=== PATIENT | female | born 1975 | race Caucasian/White ===

== ENCOUNTER 2018-03-24 14:18 | Emergency (ER) | payer SELFPAY ==
[~2018-03-24] VITALS: Ht 167.6 cm; Wt 74.8 kg
[2018-03-24 15:07] VITALS: BP 137/83
--- NOTE | 2018-03-24 15:34 | EKG ---
[facility] [address] [place] [address] Test Date: 2018-03-24 Test Time: 14:24:41 Pat Name: DAWOOD CASTLE Department: Room: Gender: F Retina Subspecialist: : 1975 Requested By: BRODERICK WHITFIELD Order Number: [id number] Reading MD: Fernando Jackson Measurements Intervals Jasper Rate: 74 P: 68 WA: 140 QRS: 73 QRSD: 84 T: 19 QT: 378 QTc: 420 Interpretive Statements SINUS RHYTHM NONSPECIFIC ST-T WAVE CHANGES. POSSIBLY ABNORMAL ECG RI6.01 No previous ECG available for comparison Electronically Signed On 03-28-2018 12:55:38 [employer] TECHNICIAN by Fernando Jackson
[2018-03-24] MEDS ORDERED: LIDOCAINE 2% VISCOUS 15 ML SOLUTION. ONE (15:37)
[2018-03-24] MEDS: MAALOX:LIDO:APAP 6:2:1 ORAL SUSPENSION 180 ML BOTTLE. PO PRN (16:16)
[2018-03-24] MEDS: PANTOPRAZOLE 40 MG TABLET.DR. PO ONE (16:16)
[2018-03-24 16:34] LABS: BASO % 1 % (0-3); EOS # 0.4 x10^3/uL (0.0-0.7); EOS % 5 % (0-3); HEMATOCRIT 43.7 % (36.0-47.0); LYMPH # 2.4 x10^3/uL (1.0-4.8); LYMPH % 30 % (24-48); MEAN CORPUSCULAR HEMOGLOBIN 30 pg (25-35); MEAN CORPUSCULAR HGB CONC 34 g/dL (31-37); MEAN CORPUSCULAR VOLUME 88 fL (79-100); MONO # 0.6 x10^3/uL (0.0-1.1); MONO % 8 % (0-9); NEUT # 4.5 x10^3uL (1.8-7.7); NEUT % 57 % (31-73); PLATELET COUNT 237 x10^3/uL (140-400); RED BLOOD COUNT 4.94 x10^6/uL (3.50-5.40); RED CELL DISTRIBUTION WIDTH 12.3 % (11.5-14.5)
[2018-03-24 16:41] LABS: CREATININE 0.8 mg/dL (0.6-1.0); GFR 78.7; POTASSIUM 3.8 mmol/L (3.5-5.1)
[2018-03-24 17:04] LABS: U PREG PATIENT NEGATIVE (NEG)
--- NOTE | 2018-03-24 17:19 | PHYS DOC ---
Past Medical History Past Medical History: Asthma Past Surgical History: No Surgical History Alcohol Use: Occasionally Drug Use: None Adult General Chief Complaint Chief Complaint: CHEST PAIN-NON CARDIAC NATURE HPI HPI Patient is a 43 year old female who presents to the ER for evaluation chest pain. Patient reports long-standing history of dysphagia with some intermittent self resolving fluid boluses. His GERD symptoms and sensation of dysphasia/ esophageal food impactions. Over the past 2-3 days. Patient states while driving her vehicle and eating she had acute epigastric/chest pain associated with impacted food sensation. States that lasted for approximately 40 minutes and self resolved. Denies any current symptoms. Has history of asthma currently on a prednisone steroid burst. Reports that her asthma symptoms are improving. No GI bleed symptoms. Is not currently established with a PCP. Review of Systems Review of Systems Constitutional: Denies fever or chills [] Eyes: Denies change in visual acuity, redness, or eye pain [] HENT: Denies nasal congestion or sore throat [] Respiratory: Denies cough or shortness of breath [] Cardiovascular: Chest pain-resolved, no orthopnea, no LE edema GI: Denies abdominal pain, nausea, vomiting, bloody stools or diarrhea [] : Denies dysuria or hematuria [] Musculoskeletal: Denies back pain or joint pain [] Integument: Denies rash or skin lesions [] Neurologic: Denies headache, focal weakness or sensory changes [] Endocrine: Denies polyuria or polydipsia [] All other systems were reviewed and found to be within normal limits, except as documented in this note. Current Medications Current Medications Current Medications Medications (Trade) Dose Ordered Sig/Hesham Start Time Stop Time Status Last Admin Dose Admin Lidocaine HCl (Viscous Lidocaine) 15 ml STK-MED ONCE 03/24/18 15:37 03/24/18 15:38 DC Multi-Ingredient Mouthwash/Gargle (Velvet Glove Oral Susp) 10 ml PRN QID PRN 03/24/18 15:30 03/24/18 17:31 DC 03/24/18 16:16 10 ML Pantoprazole Sodium (Protonix) 40 mg 1X ONCE 03/24/18 15:30 03/24/18 15:31 DC 03/24/18 16:16 40 MG Allergies Allergies Allergies Coded Allergies Type Severity Reaction Last Updated Verified Penicillins Allergy Intermediate Unknown 03/24/18 Yes Sulfa (Sulfonamide Antibiotics) Allergy Intermediate Unknown 03/24/18 Yes clarithromycin Allergy Intermediate Unknown 03/24/18 Yes Physical Exam Physical Exam Constitutional: Well developed, well nourished, no acute distress, non-toxic appearance. [] HENT: Normocephalic, atraumatic, bilateral external ears normal, oropharynx moist, no oral exudates, nose normal. [] Eyes: PERRLA, EOMI, conjunctiva normal, no discharge. [] Neck: Normal range of motion, no tenderness, supple, no stridor. [] Cardiovascular:Heart rate regular rhythm, no murmur [] Lungs & Thorax: Bilateral breath sounds clear to auscultation [] Abdomen: Bowel sounds normal, soft, no tenderness, no masses, no pulsatile masses. [] Skin: Warm, dry, no erythema, no rash. [] Back: No tenderness, no CVA tenderness. [] Extremities: No tenderness, no cyanosis, no clubbing, ROM intact, no edema. [] Neurologic: Alert and oriented X 3, normal motor function, normal sensory function, no focal deficits noted. [] Psychologic: Affect normal, judgement normal, mood normal. [] Current Patient Data Vital Signs Vital Signs Date Time Temp Pulse Resp B/P (MAP) Pulse Ox O2 Delivery O2 Flow Rate FiO2 03/24/18 15:07 98.4 73 20 137/83 (101) 97 Room Air 98.4 Lab Values Laboratory Tests Test 03/24/18 16:15 03/24/18 16:25 Urine Test Negative (NEG) White Blood Count 8.0 x10^3/uL (4.0-11.0) Red Blood Count 4.94 x10^6/uL (3.50-5.40) Hemoglobin 15.0 g/dL (12.0-15.5) Hematocrit 43.7 % (36.0-47.0) Mean Corpuscular Volume 88 fL (79-100) Mean Corpuscular Hemoglobin 30 pg (25-35) Mean Corpuscular Hemoglobin Concent 34 g/dL (31-37) Red Cell Distribution Width 12.3 % (11.5-14.5) Platelet Count 237 x10^3/uL (140-400) Neutrophils (%) (Auto) 57 % (31-73) Lymphocytes (%) (Auto) 30 % (24-48) Monocytes (%) (Auto) 8 % (0-9) Eosinophils (%) (Auto) 5 % (0-3) H Basophils (%) (Auto) 1 % (0-3) Neutrophils # (Auto) 4.5 x10^3uL (1.8-7.7) Lymphocytes # (Auto) 2.4 x10^3/uL (1.0-4.8) Monocytes # (Auto) 0.6 x10^3/uL (0.0-1.1) Eosinophils # (Auto) 0.4 x10^3/uL (0.0-0.7) Basophils # (Auto) 0.0 x10^3/uL (0.0-0.2) Sodium Level 140 mmol/L (136-145) Potassium Level 3.8 mmol/L (3.5-5.1) Chloride Level 102 mmol/L (98-107) Carbon Dioxide Level 31 mmol/L (21-32) Anion Gap 7 (6-14) Blood Urea Nitrogen 15 mg/dL (7-20) Creatinine 0.8 mg/dL (0.6-1.0) Estimated GFR (Cockcroft-Gault) 78.7 Glucose Level 85 mg/dL (70-99) Calcium Level 9.0 mg/dL (8.5-10.1) Troponin I Quantitative < 0.017 ng/mL (0.000-0.055) Laboratory Tests 03/24/18 16:25 Laboratory Tests 03/24/18 16:25 EKG EKG NSR, HR 74, no significant ST segment changes[] Radiology/Procedures Radiology/Procedures CXR 2 view: no acute findings[] Course & Med Decision Making Course & Med Decision Making Pertinent Labs and Imaging studies reviewed. (See chart for details) []Patient reporting resolved to maybe 1-2 out of 10 on the pain scale at time of my evaluation. Leonardo that the GI cocktail helped significantly. No acute findings on labs, EKG, chest x-ray. Advised need for close GI follow-up. Advised to establish care with PCP. Will start on Protonix. ER return precautions given. Patient verbalized understanding. All questions answered. Dragon Disclaimer Dragon Disclaimer This electronic medical record was generated, in whole or in part, using a voice recognition dictation system. Departure Departure Impression: Primary Impression: Chest pain Additional Impression: Dysphagia Disposition: 01 HOME, SELF-CARE Condition: IMPROVED Referrals: UNKNOWN PCP NAME (PCP) NAHEED FERGUSON MD Patient Instructions: Chest Pain (Nonspecific), Dysphagia Additional Instructions: Thank you for coming to [facility]. Please repeat the attached handouts. Please follow-up with your primary care physician. Return to the ER if your symptoms worsen or you have any other concerns. Please establish care as soon as possible with a primary care physician. Please follow-up with the referred GI physician. Problem Qualifiers BRODERICK WHITFIELD DO Mar 24, 2018 17:19
--- NOTE | 2018-03-24 18:19 | RAD ---
EXAM: CHEST PA LATERAL DATE: 03/24/2018 5:05 PM INDICATION: Chest pain today COMPARISON: No Prior FINDINGS: The heart is not enlarged. Mediastinal and hilar contours are normal. No focal parenchymal airspace opacity. No pleural effusion or pneumothorax. IMPRESSION: 1. No radiographic evidence for acute cardiopulmonary process. Electronically signed by: Nicola Bolivar MD (03/24/2018 6:16 PM) [facility] [id number]
== END 2018-03-24 17:31 | disposition home or self-care (01) ==
LOC: ER 14:18
DX: R07.89 Other chest pain (principal); R13.10 Dysphagia, unspecified; J45.909 Unspecified asthma, uncomplicated; Z88.0 Allergy status to penicillin; Z88.1 Allergy status to other antibiotic agents; Z88.2 Allergy status to sulfonamides
CPT/HCPCS: 36415; 71046; 80048; 81025; 84484; 85025; 93005; 99285-25

== ENCOUNTER → 2018-04-01 | Outpatient (CLI) | payer OTHER ==
[2018-03-24 15:07] VITALS: BP 137/83
[2018-04-01 09:40] LABS: CALCIUM 8.4 mg/dL (8.5-10.1); CREATININE 0.9 mg/dL (0.6-1.0); GFR 68.7; POTASSIUM 3.5 mmol/L (3.5-5.1)
== END | disposition home or self-care (01) ==
LOC: LAB 09:09
PROVIDERS: ATTEND Family Medicine
DX: Z00.01 Encounter for general adult medical examination with abnormal findings (principal); E03.9 Hypothyroidism, unspecified
CPT/HCPCS: 36415; 80048; 80061; 84443

== ENCOUNTER → 2018-05-05 | Day surgery (SDC) | payer OTHER ==
[~2018-05-05] MED LIST: FLUT1DIS IH; IV RINGERS,LACTATED 1000ML 1,000 ML IV SCH; LEVO25TA4 PO; LIDOCAINE 1% PF 2 ML VIAL. ID PRN; MIDAZOLAM HCL/PF 2 MG/2 ML VIAL. IV PRN; MONT10TA9 PO; NORG1TAB6 PO; PRED20TA PO; PROPOFOL 40 ML IV ONE; VENTOLIN HFA18 GM INH; fentaNYL PF VIAL 100 MCG/2 ML VIAL IV PRN
[2018-05-05 09:41] LABS: U PREG PATIENT NEGATIVE (NEG)
[2018-05-05 10:40] VITALS: BP 106/67
--- NOTE | 2018-05-06 14:10 | PATHOLOGY ---
[facility] Accession Number: [id number] . 01 Material submitted: . PART A: SMALL BOWEL PART B: GASTRIC ANTRUM PART C: DISTAL ESOPHAGUS PART D: MID ESOPHAGUS . 01 Clinical history: . Dysphagia . 02 Diagnosis: A. Small bowel biopsy: - No significant pathologic abnormalities. . B. Gastric biopsy, antrum: - Consistent with reactive gastropathy. . C. Esophageal biopsy, distal esophagus: - Segments of hyperplastic squamous esophageal mucosa showing focal superficial ulceration and acute inflammation, and segments of gastric mucosa showing chronic inflammation, consistent with reflux esophagitis. . D. Esophageal biopsy, middle esophagus: - Segments of squamous esophageal mucosa showing no significant pathologic abnormalities. (JPM:allyson; 05/06/2018) QMS/05/06/2018 . 02 Comment: Sections of the small bowel biopsy, where best oriented, display mucosal villi showing no sprue-like changes or significant inflammatory changes. . Sections of the gastric antral biopsy show congestion, foveolar hyperplasia, and no significant inflammation. A properly controlled immunoperoxidase stain for Helicobacter is negative for Helicobacter organisms. The findings are consistent with a reactive gastropathy. . Sections of the distal esophageal biopsy reveal segments of hyperplastic squamous esophageal mucosa showing focal superficial ulceration and acute inflammation, and segments of gastric mucosa showing chronic inflammation. The squamous esophageal mucosa focally shows a few intraepithelial eosinophils. The findings are consistent with reflux esophagitis with focal ulceration. There is no evidence of Negrete's change, dysplasia, or malignancy. . Sections of the middle esophagus biopsy reveal segments of squamous esophageal mucosa showing no significant pathologic abnormalities. (JPM:allyson; 05/06/2018) . . Special stain performed: Immunoperoxidase stain for Helicobacter on B1. . 02 Electronically signed: . Anmol Gale MD, Pathologist NPI- [id number] . 01 Gross description: . A. The specimen is received in formalin, labeled ", August, small bowel" and consists of 4 fragments of soft ortiz tissue measuring between 0.1 x 0.1 cm and 0.5 x 0.2 x 0.1 cm. They are entirely submitted in A1. . B. The specimen is received in formalin, labeled "August, gastric antrum" and consists of 2 fragments soft ortiz tissue measuring 0.4 x 0.2 x 0.1 cm and 0.3 x 0.2 x 0.1 cm. They are entirely submitted in B1. . C. The specimen is received in formalin, labeled "August, distal esophagus" and consists of 4 fragments of translucent cuellar-ortiz tissue measuring between 0.2 x 0.2 cm and 0.5 x 0.3 x 0.1 cm. They are entirely submitted in C1. . D. The specimen is received in formalin, labeled ", August, mid esophagus" and consists of 2 translucent fragments of cuellar-ortiz tissue measuring 0.2 x 0.2 x 0.1 cm and 0.3 x 0.3 x 0.1 cm. They are entirely submitted in D1. (SDY; 05/05/2018) SYU/SYU . 02 Pathologist provided ICD-10: K31.9, K21.0 . 02 CPT . 057475, 544170, 331824, 401398, [id number] Specimen Comment: A courtesy copy of this report has been sent to Specimen Comment: [phone], . Specimen Comment: Report sent to / DR KENDALL Specimen Comment: A duplicate report has been generated due to demographic updates. Performed at: 01 [facility] [address], [place], [place] [id number] MD Elian Hickman MD Phone: [phone] Performed at: 02 [facility] [address] [place], [place] [id number] MD Anmol Gale MD Phone: [phone]
== END | disposition home or self-care (01) ==
LOC: ENDOS 08:51
PROVIDERS: ATTEND Internal Medicine Gastroenterology
DX: K22.10 Ulcer of esophagus without bleeding (principal); K21.0 Gastro-esophageal reflux disease with esophagitis; K29.70 Gastritis, unspecified, without bleeding; Z88.0 Allergy status to penicillin; Z88.2 Allergy status to sulfonamides; Z88.1 Allergy status to other antibiotic agents; Z88.6 Allergy status to analgesic agent; J45.909 Unspecified asthma, uncomplicated; E03.9 Hypothyroidism, unspecified; Z82.49 Family history of ischemic heart disease and other diseases of the circulatory system; Z72.89 Other problems related to lifestyle; Z79.899 Other long term (current) drug therapy; Z90.49 Acquired absence of other specified parts of digestive tract
CPT/HCPCS: 43239; 43450; 81025; 88305; 88342; J2704

== ENCOUNTER → 2018-06-09 | Outpatient (CLI) | payer OTHER ==
[2018-06-05 00:30] VITALS: BP 114/70
[~2018-06-09] MED LIST changes: +CELE200C PO; +CETI10TA22 PO; +FLUT1DIS3 IH; -IV RINGERS,LACTATED 1000ML 1,000 ML IV SCH; -LIDOCAINE 1% PF 2 ML VIAL. ID PRN; -MIDAZOLAM HCL/PF 2 MG/2 ML VIAL. IV PRN; +MONT10TA49 PO; -MONT10TA9 PO; +MULT1TAB52 PO; +OMEG1CAP27 PO; +OXYC1TAB19 PO; +PANT20TA2 PO; -PROPOFOL 40 ML IV ONE; +[UNRECOGNIZED DRUG - OTHER]; -fentaNYL PF VIAL 100 MCG/2 ML VIAL IV PRN
[2018-06-09 10:07] LABS: BILIRUBIN,URINE NEGATIVE (NEG); CLARITY,URINE CLEAR; COLOR,URINE YELLOW; NITRITE,URINE NEGATIVE (NEG); PH,URINE 5.5; PROTEIN,URINE NEGATIVE (NEG-TRACE); UROBILINOGEN,URINE 0.2 mg/dL (0.2 mg/dL)
[2018-06-09 10:09] LABS: BASO % 1 % (0-3); EOS # 0.2 x10^3/uL (0.0-0.7); EOS % 4 % (0-3); HEMATOCRIT 39.2 % (36.0-47.0); HEMOGLOBIN 13.7 g/dL (12.0-15.5); LYMPH # 1.5 x10^3/uL (1.0-4.8); LYMPH % 27 % (24-48); MEAN CORPUSCULAR HEMOGLOBIN 31 pg (25-35); MEAN CORPUSCULAR HGB CONC 35 g/dL (31-37); MEAN CORPUSCULAR VOLUME 88 fL (79-100); MONO # 0.5 x10^3/uL (0.0-1.1); MONO % 9 % (0-9); NEUT # 3.2 x10^3uL (1.8-7.7); NEUT % 60 % (31-73); PLATELET COUNT 203 x10^3/uL (140-400); RED BLOOD COUNT 4.46 x10^6/uL (3.50-5.40); RED CELL DISTRIBUTION WIDTH 12.8 % (11.5-14.5); WHITE BLOOD COUNT 5.4 x10^3/uL (4.0-11.0)
[2018-06-09 10:25] LABS: BACTERIA,URINE 0 /HPF (0-FEW); RBC,URINE 0 /HPF (0-2); SQUAMOUS EPITHELIAL CELL,UR OCC /LPF; WBC,URINE 0 /HPF (0-4)
[2018-06-09 10:40] LABS: ALBUMIN 3.2 g/dL (3.4-5.0); ALBUMIN/GLOBULIN RATIO 0.9 (1.0-1.7); CALCIUM 8.5 mg/dL (8.5-10.1); CREATININE 0.7 mg/dL (0.6-1.0); GFR 91.8; POTASSIUM 3.9 mmol/L (3.5-5.1); TOTAL BILIRUBIN 0.3 mg/dL (0.2-1.0); TOTAL PROTEIN 6.8 g/dL (6.4-8.2)
[2018-06-09 19:15] LABS: THYROPEROXIDASE ANTIBODY 10 IU/mL (0-34)
[2018-06-13 05:10] LABS: IMMUNOGLUBULIN E 788 IU/mL (0-100)
[2018-06-13 18:11] LABS: ANA INTERP Positive (.)
== END | disposition home or self-care (01) ==
LOC: LAB 09:07
PROVIDERS: ATTEND Allergy & Immunology
DX: L50.9 Urticaria, unspecified (principal); J45.40 Moderate persistent asthma, uncomplicated
CPT/HCPCS: 36415; 80053; 81001; 82784; 84443; 85025; 85651; 86038; 86376; 86800

== ENCOUNTER → 2018-07-28 | Outpatient (CLI) | payer OTHER ==
[2018-06-05 00:30] VITALS: BP 114/70
[~2018-07-28] MED LIST changes: -MONT10TA49 PO; +MONT10TA9 PO
--- NOTE | 2018-07-28 14:40 | KCIC ---
MRI of the lumbar spine without contrast 07/28/2018 CLINICAL HISTORY: Progressing left leg pain. TECHNIQUE: Unenhanced T1-weighted and T2-weighted sagittal and axial and inversion recovery sagittal images of the lumbar spine were obtained. FINDINGS: Minimal S-shaped curvature of the thoracolumbar spine is seen. Degenerative signal changes are seen involving the L4-5 and L5-S1 discs. Degenerative signal changes are seen within the marrow surrounding these discs. Loss of height of the L5-S1 disc is noted. The conus medullaris is normal morphology, position, and signal characteristics. At the L1-2, L2-3 and L3-4 disc spaces there are minimal generalized disc bulges. Degenerative changes are seen involving the facet joints bilaterally. There is mild ligamentum flavum hypertrophy bilaterally. These findings when combined do not result in significant central spinal canal or neural foraminal stenosis. At the L4-5 disc space there is a mild generalized disc bulge. Degenerative changes are seen involving the facet joints bilaterally. There is moderate ligament flavum hypertrophy bilaterally. There are small facet joint effusions. These findings when combined result in mild central spinal canal stenosis. No neural foraminal stenosis is seen. At the L5-S1 disc space is a mild generalized disc bulge. Degenerative changes are seen involving the facet joints bilaterally. These findings do not result in significant central spinal canal or neural foraminal stenosis. IMPRESSION: The changes of degenerative disc disease are seen involving lumbar spine. These findings result in mild central spinal canal stenosis at L4-5. No neural foraminal stenosis is seen. Electronically signed by: Rohith Zuniga MD (07/28/2018 2:37 PM) [facility]
--- NOTE | 2018-07-28 16:07 | KCIC ---
MRI of the cervical spine without contrast 07/28/2018 CLINICAL HISTORY: Numbness in both hands for several weeks. TECHNIQUE: Unenhanced T1-weighted, T2-weighted and inversion recovery sagittal and gradient echo and T2-weighted axial images of the cervical spine were obtained. FINDINGS: Minimal lateral curvature of the cervical spine is seen convex to the left. There is reversal of normal cervical lordosis. Degenerative signal changes are seen involving all of the disks of the cervical spine. Degenerative signal changes are seen within the marrow surrounding these discs. No area of abnormal signal intensity is seen involving the cervical spinal cord. At the C2-3 and C3-4 disc spaces there are minimal generalized disc bulges. Degenerative changes are seen involving the uncovertebral and facet joints bilaterally. These findings do not result in significant central spinal canal or neural foraminal stenosis. At the C4-5 disc space there is a mild generalized disc bulge. Superimposed on this disc bulge is a left paracentral focal disc protrusion. This measures 3 mm in AP diameter. Degenerative changes are seen involving the uncovertebral and facet joints, left greater than right. These findings when combined do not result in significant central spinal canal stenosis. Mild to moderate left neural foraminal stenosis is seen. The right neural foramen is patent. At the C5-6 disc space there is a mild to moderate generalized disc bulge. This is eccentric to the right. Degenerative changes are seen involving the uncovertebral and facet joints, right greater than left. These findings when combined do not result in significant central spinal canal stenosis. Mild to moderate bilateral neural foraminal stenosis is seen. At the C6-7 disc space there is a mild generalized disc bulge. Degenerative changes are seen involving the uncovertebral and facet joints bilaterally. These findings do not result in significant central spinal canal or neural foraminal stenosis. At the C7-T1 disc space there is a minimal generalized disc bulge. Degenerative changes are seen involving the facet joints bilaterally. These findings do not result in significant central spinal canal or neural foraminal stenosis. IMPRESSION: Degenerative changes are seen involving the cervical spine. These findings do not result in significant central spinal canal stenosis at any level. Mild to moderate left neural foraminal stenosis is seen at C4-5. Mild to moderate bilateral neural foraminal stenosis is seen at C5-6. Electronically signed by: Rohith Zuniga MD (07/28/2018 4:04 PM) [facility]
== END | disposition home or self-care (01) ==
LOC: KCIC MRI 09:26
PROVIDERS: ATTEND Family Medicine
DX: M51.36 Other intervertebral disc degeneration, lumbar region (principal); M48.061 Spinal stenosis, lumbar region without neurogenic claudication; M51.27 Other intervertebral disc displacement, lumbosacral region; M47.817 Spondylosis without myelopathy or radiculopathy, lumbosacral region; M47.812 Spondylosis without myelopathy or radiculopathy, cervical region; M48.02 Spinal stenosis, cervical region; M50.23 Other cervical disc displacement, cervicothoracic region; M43.8X5 Other specified deforming dorsopathies, thoracolumbar region; M79.605 Pain in left leg
CPT/HCPCS: 72141; 72148

== ENCOUNTER → 2018-08-24 | Outpatient (CLI) | payer OTHER ==
[2018-06-05 00:30] VITALS: BP 114/70
[~2018-08-24] MED LIST changes: +IOHEXOL 180 MG/ML 10 ML VIAL. ONE; +methylPREDNISolone ACETATE 40 MG/ML VIAL. ONE; +methylPREDNISolone ACETATE 80 MG/ML VIAL. ONE
--- NOTE | 2018-08-25 02:03 | PAIN ---
DATE OF SERVICE: 08/24/2018 INITIAL CONSULTATION FOR PAIN CLINIC CHIEF COMPLAINT: Low back and left lower extremity pain. HISTORY OF PRESENT ILLNESS: This is a 43-year-old female who presents with history of pain in the low back and mostly in the left posterior gluteus and thighs, also lateral thigh since about October or 11/2017. The patient reports it gradually increased, not a result of any specific injury or action that she is aware of, also been getting worse over time, but worse with standing, walking, also sitting with pain in the left low back, posterior hip and leg. The patient reports it does not awaken her from sleep at night, does not affect her bowel or bladder controls, does not affect her ability to walk, but it is painful to walk and stand as well as sitting. The patient reports it is sharp, intermittent in intensity with some numbness sensation in the leg and burning in the hip posteriorly. The patient rates her disability rating from 0-10, 10 being the worst, is a 3 with family home responsibilities and sexual behavior, 2 with recreation and social activity, 4 with occupation and 1 with self-care and 3 with life support activities. The patient did have MRI scan of lumbar spine showing some degenerative disk disease in the lumbar spine, mild central spinal canal stenosis at L4-L5, but no neural foraminal stenosis. L5-S1 and L4-L5 shows decreased disk space height with some generalized disk bulge at both levels as well. The patient is taking [id number] Tylenol, which does not seem to decrease the pain significantly. She has had chiropractic treatment in the past, has had physical therapies doing exercise on her own and stretching without significant decrease in pain currently. The patient reports usually it flares up while she is sitting on the left side, nothing on the right side, does have some increased fatigue in the left leg as well, but only moderately. PAST MEDICAL HISTORY: Significant for gastroesophageal reflux, had some asthma, otherwise been in good health. PREVIOUS SURGERY: Include LEEP procedure, cholecystectomy and diagnostic laparoscopy. CURRENT MEDICATIONS: Include Ventolin inhaler, levothyroxine, Advair, Sprintec, Zyrtec, Celebrex, and Protonix. ALLERGIES: THE PATIENT IS ALLERGIC TO FENTANYL, PENICILLIN, SULFA, IBUPROFEN, BIAXIN AND PORK PRODUCTS. FAMILY HISTORY: Significant for hypertension, stomach cancer, hypothyroidism. SOCIAL HISTORY: The patient drinks alcohol about 3-4 times a year, one drink at a time maybe. No tobacco use or smoking. Does not use any illegal, illicit or recreational drugs. Single, has 2 children living at home. Lives locally in [place], [place] and works as a home health nurse. REVIEW OF SYSTEMS: The patient's review of systems is positive for those items mentioned in history of present illness. All systems reviewed and otherwise negative. It is complete, full and well documented on the patient's chart. PHYSICAL EXAMINATION: GENERAL: Blood pressure is 139/91, pulse 87, respirations 18, temperature is 98.3 Fahrenheit, height is 5 feet 6 inches, weight is 181 pounds. GENERAL: The patient is awake, alert, oriented, appropriate, very pleasant demeanor. HEENT: Shows normocephalic, traumatic. Extraocular movements are intact and symmetrical. Oral cavity: Mucous membranes are moist and pink. Dentition is intact. NECK: Shows anterior throat supple without palpable lymphadenopathy noted. Swallow reflex is symmetrical. CHEST: Shows normal on inspection. Breath sounds are clear to auscultation bilaterally. HEART: Shows S1, S2 clear. No murmurs auscultated. ABDOMEN: Soft, obese, nontender, nondistended. No palpable organomegaly is noted. No rebound or guarding demonstrated. BACK: Shows spine grossly in the midline. The patient's low back shows good rotational motion of lumbar spine, both laterally greater than 10 degrees right and left as well as extension greater than 10 degrees, forward flexion 45 degrees without exacerbation of pain. Paraspinous musculature shows symmetrical on inspection, with palpation shows some moderate tenderness diffusely bilaterally, but only diffusely without radiation or trigger points and is symmetrical. The patient shows no tenderness over the sacrum or sacroiliac regions or the spinous processes. EXTREMITIES: Lower extremities show deep tendon reflexes 2+ in the patellar and tendo calcaneus tendons are 1+ bilaterally. Motor exam is strong with 5/5 dorsiflexion, extension, quadriceps and hamstring flexion symmetrical. Peripheral pulses are 1+ posterior tibia. No peripheral edema is noted. Straight leg raise noted to be negative bilaterally for reproduction of radicular symptoms. Gaenslen's and Alfie's maneuvers are negative bilaterally as well. The patient is able to stand, stand on her toes without difficulty, no loss of balance and walks with a normal appearing gait, no assistive devices to ambulate. SKIN: Shows warm and dry, good turgor. No edema. No sores, rashes or bruising throughout. IMPRESSION: This is a 43-year-old female with: 1. Approximate 9-month history of increased pain in the low back, left lower extremity, especially in the left hip and left leg in a radicular fashion. 2. MRI scan of lumbar spine as noted. 3. History of gastroesophageal reflux. PLAN: Options were discussed with the patient including conservative medical management, physical therapy, interventional techniques. She would like to pursue interventional techniques. We discussed a lumbar epidural steroid injection using description as well as anatomical models to describe the procedure. Risks were then discussed including, but not limited to bleeding, infection, possibility of epidural hematoma, subsequent neurological compromise, dural puncture, headache, spinal cord and/or nerve damage, side effects of steroid medication and poor results regarding pain control. The patient understands and wished to proceed. The patient will return to the clinic in approximately 2 weeks for followup, was counseled on return appointment, activity level and side effects to be aware of. DIAGNOSIS: Lumbar radiculopathy with lumbar degenerative disk disease. PROCEDURE: Lumbar epidural steroid injection, translaminar approach at the L4-L5 level using C-arm fluoroscopic guidance under sterile prep and drape using local anesthetic. MEDICATION INJECTED: A total of 120 mg Depo-Medrol plus 10 mL of preservative-free normal saline and 2 mL of Isovue for contrast. CONDITION AT DISCHARGE: Stable. The patient tolerated the procedure well, had no complications. ERICA ROGERS MD DR: TRACY/florence JOB#: [id number] / [id number]
== END | disposition home or self-care (01) ==
LOC: PNCL 09:21
PROVIDERS: ATTEND Anesthesiology
DX: M51.16 Intervertebral disc disorders with radiculopathy, lumbar region (principal); K21.9 Gastro-esophageal reflux disease without esophagitis; J45.909 Unspecified asthma, uncomplicated; Z90.49 Acquired absence of other specified parts of digestive tract; Z98.890 Other specified postprocedural states; Z79.899 Other long term (current) drug therapy; Z88.0 Allergy status to penicillin; Z88.2 Allergy status to sulfonamides; Z88.6 Allergy status to analgesic agent; Z88.8 Allergy status to other drugs, medicaments and biological substances; Z82.49 Family history of ischemic heart disease and other diseases of the circulatory system; Z83.49 Family history of other endocrine, nutritional and metabolic diseases; Z80.0 Family history of malignant neoplasm of digestive organs; Z72.89 Other problems related to lifestyle; Z88.1 Allergy status to other antibiotic agents
CPT/HCPCS: 62323; J1030; J1040; Q9965

== ENCOUNTER → 2018-09-08 | Outpatient (CLI) | payer OTHER ==
[2018-06-05 00:30] VITALS: BP 114/70
--- NOTE | 2018-09-08 21:20 | PAIN ---
DATE OF SERVICE: 09/08/2018 DIAGNOSES: Lumbar radiculopathy with lumbar degenerative disk disease. HISTORY OF PRESENT ILLNESS: The patient is a 43-year-old female who returns for followup status post lumbar epidural steroid injection x 1. The patient reports only minimal decrease in pain in low back and left leg, although she has felt that she was walking a little easier, but the pain is still there. The patient is still better with sitting or lying down, does not awaken her from sleep at night. The patient reports she has increased her walking slightly, but still significant pain in the low back and left leg, mostly in the posterior gluteus, posterior lateral thigh, lateral anterior thigh, anterior medial knee on the left side. The patient reports no new motor or sensory deficits, some pain on the right side of the posterior gluteus and hip, but only very rarely. The reports pain is a 7 on a scale of 10 at its worst, 4-5 on average and 1 at its least over the past week. The patient describes as tingling, burning, cramping, stabbing at times and also radiating to the left leg as noted. The patient reports no new changes, no new bowel or bladder incontinence or other complaints. PHYSICAL EXAMINATION: VITAL SIGNS: The patient's blood pressure 132/87, pulse 67, respirations are 18, temperature 98.2 degrees Fahrenheit, height is 5 feet 6 inches, weighs 182 pounds. GENERAL: The patient is awake, alert, oriented, appropriate, very pleasant demeanor. HEENT: Shows normocephalic, atraumatic. Extraocular movements are intact and symmetrical. Oral cavity: Mucous membranes moist and pink. Dentition is intact. NECK: Shows anterior throat supple without palpable lymphadenopathy noted. Swallow reflex is symmetrical. CHEST: Shows normal on inspection. Breath sounds are clear to auscultation bilaterally. HEART: Shows S1, S2 clear. No murmurs auscultated. ABDOMEN: Soft, nontender, nondistended. No palpable organomegaly is noted. No rebound or guarding demonstrated. BACK: Shows spine grossly in the midline. Normal appearing thoracic kyphosis and lumbar lordotic curvature. Lumbar paraspinous muscle shows symmetrical on inspection. On palpation shows some moderate tenderness diffusely bilaterally in the low lumbar distribution, slightly more on the left than the right, but present bilaterally. The patient shows good rotational motion of lumbar spine, both laterally toward extension and flexion without significant difficulty. EXTREMITIES: Lower extremities show deep tendon reflexes at 2+ in the patellar, 1+ tendo calcaneus tendons. Motor exam is strong with 5/5 dorsiflexion, extension, quadriceps and hamstring flexion. Peripheral pulses are 1+ posterior tibia. No peripheral edema is noted bilaterally. Options were discussed with the patient. The patient's old chart was reviewed as was her current medication regimen updated. Current review of systems is updated today as well. We will proceed with a second in the series of lumbar epidural steroid injection today with fluoroscopic guidance. Risks were again discussed including, but not limited to bleeding, infection, possibility of epidural hematoma, subsequent neurologic compromise, dural puncture, headaches, spinal cord and/or nerve damage, side effects of steroid medication and poor results regarding pain control. The patient understands and wished to proceed. The patient will return to the clinic in approximately 2 weeks for followup, was counseled on return appointment, activity level and side effects to be aware of. DIAGNOSIS: Lumbar radiculopathy with lumbar degenerative disk disease. PROCEDURES: Lumbar epidural steroid injection, translaminar approach at L4-L5 level using C-arm fluoroscopic guidance under sterile prep and drape using local anesthetic. MEDICATION INJECTED: A total of 120 mg Depo-Medrol plus 10 mL of preservative-free normal saline and 2 mL of Isovue for contrast. CONDITION AT DISCHARGE: Stable. The patient tolerated the procedure well, had no complications. ERICA ROGERS MD DR: TRACY/florence JOB#: [id number] / [id number]
== END | disposition home or self-care (01) ==
LOC: PNCL 08:27
PROVIDERS: ATTEND Anesthesiology
DX: M51.16 Intervertebral disc disorders with radiculopathy, lumbar region (principal); Z88.0 Allergy status to penicillin; Z88.2 Allergy status to sulfonamides; Z88.1 Allergy status to other antibiotic agents; Z88.6 Allergy status to analgesic agent; Z88.8 Allergy status to other drugs, medicaments and biological substances; Z91.018 Allergy to other foods
CPT/HCPCS: 62323; J1030; J1040; Q9965

== ENCOUNTER → 2018-09-23 | Outpatient (CLI) | payer OTHER ==
[2018-06-05 00:30] VITALS: BP 114/70
[~2018-09-23] MED LIST changes: -IOHEXOL 180 MG/ML 10 ML VIAL. ONE; -methylPREDNISolone ACETATE 40 MG/ML VIAL. ONE; -methylPREDNISolone ACETATE 80 MG/ML VIAL. ONE
--- NOTE | 2018-09-24 01:10 | PAIN ---
DATE OF SERVICE: 09/23/2018 DIAGNOSES: Lumbar radiculopathy with lumbar degenerative disk disease. HISTORY OF PRESENT ILLNESS: The patient is a 43-year-old female who returns for followup status post lumbar epidural steroid injection x 2. The patient reports no significant improvement after the second injection, still pain in the low back and radiating into the left posterior gluteus, posterolateral and anterior thigh. The patient reports it is worse with walking, standing, sitting, is impeding her ability to work as she is sitting and typing and even riding in the car was becoming more and more painful. The patient reports the pain is a 7 on a scale of 10 at its worst, 5 on average and 3 at its least over the past week and is a 5 today. The patient reports it is aching, tingling, burning, on and off in intensity, better with lying down and sleeping well through the night. It does not awaken her from sleep, much worse with sitting up, standing and walking. The patient reports no new motor or sensory deficits, no new bowel or bladder incontinence or other complaints. PHYSICAL EXAMINATION: VITAL SIGNS: The patient's blood pressure 124/82, pulse 64, respirations are 18, temperature 98.2 degrees Fahrenheit, height is 5 feet 6 inches, weighs 184 pounds. GENERAL: The patient is awake, alert, oriented, appropriate, very pleasant demeanor. HEENT: Head is normocephalic, atraumatic. Extraocular movements are intact, symmetrical. Oral cavity: Mucous membranes moist and pink. Dentition is intact. NECK: Shows anterior throat supple without palpable lymphadenopathy noted. Swallow reflex symmetrical. CHEST: Shows normal on inspection. Breath sounds are clear bilaterally. HEART: Shows S1, S2 clear. ABDOMEN: Soft, nontender, nondistended. BACK: Shows spine grossly in the midline. Normal-appearing cervical lordotic curvature, thoracic kyphotic curvature and lumbar lordotic curvature. Lumbar paraspinous muscle shows symmetrical on inspection and palpation shows some moderate tenderness throughout the upper, middle and lower distribution of paraspinous muscles bilaterally, but only diffusely without radiation. The patient has good rotational motion of lumbar spine, both laterally as well as extension and flexion without difficulty. EXTREMITIES: Lower extremities show deep tendon reflexes 2+ in the patellar and 1+ tendo-calcaneus tendons are equal. Motor exam is strong with 5/5 dorsiflexion, extension, quadriceps and hamstring flexion. Peripheral pulses are 1+ posterior tibial. No peripheral edema is noted. PLAN: Options were discussed with the patient. The patient's old chart was reviewed. Her current medication regimen updated. Current review of systems updated today as well. We will hold on any further injections per her request. She would like to speak with a neurosurgeon regarding her condition. We discussed an MRI scan as well today, and we will make a referral to discuss this with Neurosurgery. If not a surgical candidate, she would like to try a third lumbar epidural steroid injection after that evaluation. At this time, we will await for neurosurgical input, and she will follow up following that. ERICA ROGERS MD DR: TRACY/nts JOB#: [id number] / [id number]
== END | disposition home or self-care (01) ==
LOC: PNCL 09:02
PROVIDERS: ATTEND Anesthesiology
DX: M51.16 Intervertebral disc disorders with radiculopathy, lumbar region (principal)
CPT/HCPCS: G0463

== ENCOUNTER 2018-09-28 17:32 | Inpatient (IN) | payer OTHER ==
[~2018-09-28] VITALS: Ht 167.6 cm; Wt 86.2 kg
[~2018-09-28 17:32] MED LIST changes: -FLUT1DIS3 IH; -MULT1TAB52 PO; -OMEG1CAP27 PO; -OXYC1TAB19 PO
[2018-09-28 18:25] LABS: BILIRUBIN,URINE NEGATIVE (NEG); CLARITY,URINE CLEAR; COLOR,URINE YELLOW; NITRITE,URINE NEGATIVE (NEG); PROTEIN,URINE NEGATIVE (NEG-TRACE); UROBILINOGEN,URINE 0.2 mg/dL (0.2 mg/dL)
[2018-09-28] MEDS ORDERED: IV NORMAL SALINE 1000ML BAG 1,000 ML IV ONE (18:30)
[2018-09-28] MEDS ORDERED: MORPHINE SULFATE 10 MG/ML VIAL. IV ONE (18:30)
[2018-09-28] MEDS ORDERED: ONDANSETRON PF 4 MG/2 ML VIAL. IV ONE (18:30)
[2018-09-28 18:32] LABS: BARBITURATES NEG (NEG); BENZODIAZEPINES NEG (NEG); CANNABINOIDS NEG (NEG); COCAINE NEG (NEG); METHADONE NEG (NEG); OPIATES NEG (NEG); PHENCYCLIDINE NEG (NEG)
[2018-09-28 18:33] LABS: AMPHETAMINE/METHAMPHETAMINE NEG (NEG)
[2018-09-28 18:35] LABS: SQUAMOUS EPITHELIAL CELL,UR FEW /LPF
[2018-09-28 18:36] LABS: BASO % 1 % (0-3); EOS # 0.4 x10^3/uL (0.0-0.7); EOS % 4 % (0-3); HEMATOCRIT 41.6 % (36.0-47.0); HEMOGLOBIN 13.9 g/dL (12.0-15.5); LYMPH # 2.1 x10^3/uL (1.0-4.8); LYMPH % 23 % (24-48); MEAN CORPUSCULAR HEMOGLOBIN 29 pg (25-35); MEAN CORPUSCULAR HGB CONC 33 g/dL (31-37); MEAN CORPUSCULAR VOLUME 87 fL (79-100); MONO # 0.5 x10^3/uL (0.0-1.1); MONO % 6 % (0-9); NEUT # 6.1 x10^3uL (1.8-7.7); NEUT % 67 % (31-73); PLATELET COUNT 217 x10^3/uL (140-400); RED BLOOD COUNT 4.77 x10^6/uL (3.50-5.40); RED CELL DISTRIBUTION WIDTH 12.8 % (11.5-14.5); WHITE BLOOD COUNT 9.1 x10^3/uL (4.0-11.0)
[2018-09-28 18:37] LABS: BACTERIA,URINE 0 /HPF (0-FEW); RBC,URINE 0 /HPF (0-2); WBC,URINE OCC /HPF (0-4)
--- NOTE | 2018-09-28 18:37 | PHYS DOC ---
Past Medical History Past Medical History: Asthma, GERD (LUCIANO KESSLER APRN) Past Surgical History: Cholecystectomy, Other Additional Past Surgical Histo: LEEP; left knee scope (LUCIANO KESSLER APRN) Alcohol Use: Occasionally Drug Use: None (LUCIANO KESSLER APRN) Adult General Chief Complaint Chief Complaint: ABDOMINAL PAIN HPI HPI Patient is a 43 year old female who presents to the ED today complaining of 9 out of 10 sharp intermittent right lower quadrant abdominal pain that began at 4:30 this evening after having her nails done at the [employer] "down [address]". Patient denies anything specifically exacerbating or relieving the pain. Denies any nausea vomiting. Denies any chance she is . PCP Dr. Calzada (LUCIANO KESSLER APRN) Review of Systems Review of Systems Constitutional: Denies fever or chills [] Eyes: Denies change in visual acuity, redness, or eye pain [] HENT: Denies nasal congestion or sore throat [] Respiratory: Denies cough or shortness of breath [] Cardiovascular: No additional information not addressed in HPI [] GI: Reports right low quadrant abdominal pain, denies nausea, vomiting, bloody stools or diarrhea [] : Denies dysuria or hematuria [] Musculoskeletal: Denies back pain or joint pain [] Integument: Denies rash or skin lesions [] Neurologic: Denies headache, focal weakness or sensory changes [] All other systems were reviewed and found to be within normal limits, except as documented in this note. (LUCIANO KESSLER APRN) Current Medications Current Medications Current Medications Medications (Trade) Dose Ordered Sig/Hesham Start Time Stop Time Status Last Admin Dose Admin Iohexol (Omnipaque 300 Mg/ml) 75 ml 1X ONCE 09/28/18 19:00 09/28/18 19:01 DC 09/28/18 19:14 75 ML Morphine Sulfate (Morphine Sulfate) 5 mg 1X ONCE 09/28/18 18:30 09/28/18 18:31 DC 09/28/18 18:37 5 MG Ondansetron HCl (Zofran) 4 mg 1X ONCE 09/28/18 18:30 09/28/18 18:31 DC 09/28/18 18:36 4 MG Sodium Chloride 1,000 ml @ 1,000 mls/hr 1X ONCE 09/28/18 18:30 5/8/19 19:29 DC 09/28/18 18:35 1,000 MLS/HR (ASHLEY HERNÁNDEZ MD) Allergies Allergies Allergies Coded Allergies Type Severity Reaction Last Updated Verified ibuprofen Allergy Severe angioedema 08/24/18 Yes pork derived (porcine) Allergy Severe severe itching 08/24/18 Yes Penicillins Allergy Intermediate Unknown 05/05/18 Yes Sulfa (Sulfonamide Antibiotics) Allergy Intermediate Unknown 05/05/18 Yes clarithromycin Allergy Intermediate Unknown 05/05/18 Yes fentanyl Allergy Intermediate 05/05/18 Yes (ASHLEY HERNÁNDEZ MD) Physical Exam Physical Exam Constitutional: Well developed, well nourished, no acute distress, non-toxic appearance. [] HENT: Normocephalic, atraumatic, bilateral external ears normal, oropharynx moist, no oral exudates, nose normal. [] Eyes: PERRLA, EOMI, conjunctiva normal, no discharge. [] Neck: Normal range of motion, no tenderness, supple, no stridor. [] Cardiovascular:Heart rate regular rhythm, no murmur [] Lungs & Thorax: Bilateral breath sounds clear to auscultation [] Abdomen: Old healed surgical incision noted at the umbilicus from cholecystectomy. No right upper quadrant tenderness, mild right lower quadrant tenderness, negative psoas sign, negative obturator sign, negative Rovsing sign, no guarding, no rebound tenderness. Bowel sounds normal, soft, no masses, no pulsatile masses. [] Skin: Warm, dry, no erythema, no rash. [] Back: No tenderness, no CVA tenderness. [] Extremities: No tenderness, no cyanosis, no clubbing, ROM intact, no edema. [] Neurologic: Alert and oriented X 3, normal motor function, normal sensory function, no focal deficits noted. [] Psychologic: Affect normal, judgement normal, mood normal. [] (LUCIANO KESSLER APRN) Current Patient Data Vital Signs Vital Signs Date Time Temp Pulse Resp B/P (MAP) Pulse Ox O2 Delivery O2 Flow Rate FiO2 09/28/18 17:59 98.5 103 20 149/82 (104) 95 Room Air 98.5 (ASHLEY HERNÁNDEZ MD) Lab Values Laboratory Tests Test 09/28/18 18:00 09/28/18 18:04 09/28/18 18:20 Urine Collection Type Unknown Urine Color Yellow Urine Clarity Clear Urine pH 5.0 Urine Specific [place] 1.010 Urine Protein Negative mg/dL (NEG-TRACE) Urine Glucose (UA) Negative mg/dL (NEG) Urine Ketones (Stick) Negative mg/dL (NEG) Urine Blood Negative (NEG) Urine Nitrite Negative (NEG) Urine Bilirubin Negative (NEG) Urine Urobilinogen Dipstick 0.2 mg/dL (0.2 mg/dL) Urine Leukocyte Esterase Trace (NEG) Urine RBC 0 /HPF (0-2) Urine WBC Occ /HPF (0-4) Urine Squamous Epithelial Cells Few /LPF Urine Bacteria 0 /HPF (0-FEW) Urine Mucus Slight /LPF Urine Opiates Screen Neg (NEG) Urine Methadone Screen Neg (NEG) Urine Barbiturates Neg (NEG) Urine Phencyclidine Screen Neg (NEG) Urine Amphetamine/Methamphetamine Neg (NEG) Urine Benzodiazepines Screen Neg (NEG) Urine Cocaine Screen Neg (NEG) Urine Cannabinoids Screen Neg (NEG) Urine Ethyl Alcohol Neg (NEG) POC Urine HCG, Qualitative Hcg negative (Negative) White Blood Count 9.1 x10^3/uL (4.0-11.0) Red Blood Count 4.77 x10^6/uL (3.50-5.40) Hemoglobin 13.9 g/dL (12.0-15.5) Hematocrit 41.6 % (36.0-47.0) Mean Corpuscular Volume 87 fL (79-100) Mean Corpuscular Hemoglobin 29 pg (25-35) Mean Corpuscular Hemoglobin Concent 33 g/dL (31-37) Red Cell Distribution Width 12.8 % (11.5-14.5) Platelet Count 217 x10^3/uL (140-400) Neutrophils (%) (Auto) 67 % (31-73) Lymphocytes (%) (Auto) 23 % (24-48) L Monocytes (%) (Auto) 6 % (0-9) Eosinophils (%) (Auto) 4 % (0-3) H Basophils (%) (Auto) 1 % (0-3) Neutrophils # (Auto) 6.1 x10^3uL (1.8-7.7) Lymphocytes # (Auto) 2.1 x10^3/uL (1.0-4.8) Monocytes # (Auto) 0.5 x10^3/uL (0.0-1.1) Eosinophils # (Auto) 0.4 x10^3/uL (0.0-0.7) Basophils # (Auto) 0.0 x10^3/uL (0.0-0.2) Sodium Level 138 mmol/L (136-145) Potassium Level 3.3 mmol/L (3.5-5.1) L Chloride Level 101 mmol/L (98-107) Carbon Dioxide Level 27 mmol/L (21-32) Anion Gap 10 (6-14) Blood Urea Nitrogen 19 mg/dL (7-20) Creatinine 0.9 mg/dL (0.6-1.0) Estimated GFR (Cockcroft-Gault) 68.7 BUN/Creatinine Ratio 21 (6-20) H Glucose Level 89 mg/dL (70-99) Calcium Level 9.0 mg/dL (8.5-10.1) Total Bilirubin 0.2 mg/dL (0.2-1.0) Aspartate Amino Transferase (AST) 15 U/L (15-37) Alanine Aminotransferase (ALT) 21 U/L (14-59) Alkaline Phosphatase 54 U/L (46-116) Total Protein 7.4 g/dL (6.4-8.2) Albumin 3.5 g/dL (3.4-5.0) Albumin/Globulin Ratio 0.9 (1.0-1.7) L Lipase 102 U/L (73-393) Ethyl Alcohol Level < 10 mg/dL (0-10) Laboratory Tests 09/28/18 18:20 Laboratory Tests 09/28/18 18:20 (ASHLEY HERNÁNDEZ MD) EKG EKG [] (LUCIANO KESSLER APRN) Radiology/Procedures Radiology/Procedures [] (LUCIANO KESSLER APRN) Radiology/Procedures [facility] [address] [place] [address] IMAGING REPORT Signed PATIENT: CORRINEAugust ACCOUNT: [id number] : 1975 LOCATION: ER AGE: 43 SEX: F EXAM STATUS: REG ER ORD. PHYSICIAN: LUCIANO KESSLER APRN REASON: SEVERE RLQ pain SINCE 163 TODAY PROCEDURE: CT ABD PELV W/ IV CONTRST ONLY EXAM: Abdomen and pelvis CT with intravenous contrast. HISTORY: Right lower quadrant pain. TECHNIQUE: Computed tomographic images of the abdomen and pelvis were obtained following the administration of 75 cc Omnipaque 300 intravenous contrast. Multiplanar reformatting was performed. *One or more of the following individualized dose reduction techniques were utilized for this examination: 1. Automated exposure control. 2. Adjustment of the mA and/or kV according to patient size. 3. Use of iterative reconstruction technique. COMPARISON: None. FINDINGS: Evaluation of the lower thorax demonstrates minimal left basilar atelectasis. There is a tiny hiatal hernia. There is minimal fatty infiltration of the liver along the falciform ligament. The gallbladder is surgically absent. There is common bile duct dilatation likely due to reservoir effect status post colostomy. The pancreas, spleen and adrenal glands are unremarkable. The kidneys are unremarkable. There is a mildly dilated appendix with surrounding fatty stranding and prominent lymph nose, suggesting acute appendicitis. No abscess or perforation is seen. There is moderate stool within the proximal colon. There is no bowel obstruction. There is distal colonic diverticula. There is no evidence of diverticulitis. The urinary bladder and uterus are unremarkable. There is a 1.5 cm dominant right ovarian follicle/follicular cyst. There is an elongated tubular fluid-filled structure along the left adnexa, suggesting hydrosalpinx. There may be mild left hydrosalpinx. There is a small amount of pelvic free fluid, within physiologic limits. There is no lymphadenopathy. There is no suspicious osseous lesion. IMPRESSION: 1. Mildly dilated appendix with surrounding fatty stranding and prominent lymph nodes suggesting acute appendicitis. 2. Sigmoid diverticulosis. 3. Suspected 1.5 cm dominant right ovarian follicle/follicular cyst. There is suspected mild left hydrosalpinx. Electronically signed by: Micaela Gamboa MD (09/28/2018 7:37 PM) [facility] DICTATED and SIGNED BY: MICAELA GAMBOA MD DATE: 09/28/181936 (ASHLEY HERNÁNDEZ MD) Course & Med Decision Making Course & Med Decision Making Pertinent Labs and Imaging studies reviewed. (See chart for details) This is a 43-year-old female patient presenting to the ED today complaining of right lower quadrant abdominal pain that began this evening. CBC with normal WBC, CMP with nothing acute. Urine analysis is negative for infection. CT of the abdomen and pelvic pain pending. 19:[address] Hernández (LUCIANO KESSLER APRN) Course & Med Decision Making Patient care transferred to de at 191. Patient denies pain and nausea and vomiting. CT showed appendicitis. She had normal normal white count. On-call surgeon Dr. Jefferson was consulted at 1954 and recommended to not start any antibiotic and repeat CBC in the morning and admit patient to hospitalist for observation and reevaluation in the morning.Patient requiring admission for further evaluation and treatment. Discussed with Dr. Palacios who is in agreement with admission. Discussed findings and plan with patient and family, who acknowledge understanding and agreement. (ASHLEY HERNÁNDEZ MD) Dragon Disclaimer Dragon Disclaimer This electronic medical record was generated, in whole or in part, using a voice recognition dictation system. (LUCIANO KESSLER APRN) Departure Departure Impression: Primary Impression: Acute appendicitis Disposition: ADMITTED INPATIENT Admitting Physician: Joseph Palacios (accepted admission at 2003) (ASHLEY HERNÁNDEZ MD) Condition: IMPROVED Referrals: KIRSTIN BERUMEN MD (PCP) Problem Qualifiers Primary Impression: Acute appendicitis Acute appendicitis type: unspecified acute appendicitis type Qualified Codes: K35.80 - Unspecified acute appendicitis LUCIANO KESSLER APRN September 28, 2018 18:37 ASHLEY HERNÁNDEZ MD September 28, 2018 19:44
[2018-09-28 18:48] LABS: CREATININE 0.9 mg/dL (0.6-1.0); GFR 68.7; POTASSIUM 3.3 mmol/L (3.5-5.1)
[2018-09-28 18:54] LABS: ALBUMIN 3.5 g/dL (3.4-5.0); ALBUMIN/GLOBULIN RATIO 0.9 (1.0-1.7); TOTAL BILIRUBIN 0.2 mg/dL (0.2-1.0); TOTAL PROTEIN 7.4 g/dL (6.4-8.2)
[2018-09-28] MEDS ORDERED: IOHEXOL 300 MG/ML 100ML VIAL. IV ONE (19:00)
--- NOTE | 2018-09-28 19:40 | RAD ---
EXAM: Abdomen and pelvis CT with intravenous contrast. HISTORY: Right lower quadrant pain. TECHNIQUE: Computed tomographic images of the abdomen and pelvis were obtained following the administration of 75 cc Omnipaque 300 intravenous contrast. Multiplanar reformatting was performed. *One or more of the following individualized dose reduction techniques were utilized for this examination: 1. Automated exposure control. 2. Adjustment of the mA and/or kV according to patient size. 3. Use of iterative reconstruction technique. COMPARISON: None. FINDINGS: Evaluation of the lower thorax demonstrates minimal left basilar atelectasis. There is a tiny hiatal hernia. There is minimal fatty infiltration of the liver along the falciform ligament. The gallbladder is surgically absent. There is common bile duct dilatation likely due to reservoir effect status post colostomy. The pancreas, spleen and adrenal glands are unremarkable. The kidneys are unremarkable. There is a mildly dilated appendix with surrounding fatty stranding and prominent lymph nose, suggesting acute appendicitis. No abscess or perforation is seen. There is moderate stool within the proximal colon. There is no bowel obstruction. There is distal colonic diverticula. There is no evidence of diverticulitis. The urinary bladder and uterus are unremarkable. There is a 1.5 cm dominant right ovarian follicle/follicular cyst. There is an elongated tubular fluid-filled structure along the left adnexa, suggesting hydrosalpinx. There may be mild left hydrosalpinx. There is a small amount of pelvic free fluid, within physiologic limits. There is no lymphadenopathy. There is no suspicious osseous lesion. IMPRESSION: 1. Mildly dilated appendix with surrounding fatty stranding and prominent lymph nodes suggesting acute appendicitis. 2. Sigmoid diverticulosis. 3. Suspected 1.5 cm dominant right ovarian follicle/follicular cyst. There is suspected mild left hydrosalpinx. Electronically signed by: Micaela Coulter MD (09/28/2018 7:37 PM) [facility]
[2018-09-28] MEDS ORDERED: ONDANSETRON PF 4 MG/2 ML VIAL. IV PRN (20:00)
[2018-09-28] MEDS: IV NORMAL SALINE 1000ML BAG 1,000 ML IV SCH (20:13)
[2018-09-28 20:40] VITALS: BP 142/95
[2018-09-28 22:00] VITALS: BP 131/74
[2018-09-28] MEDS ORDERED: MORPHINE SULFATE 2 MG/ML VIAL. IV PRN (22:30)
[2018-09-28] MEDS ORDERED: MORPHINE SULFATE 4 MG/ML VIAL. IV PRN (22:45)
[2018-09-28] MEDS ORDERED: MONT10TA9 PO (23:21)
[2018-09-28] MEDS ORDERED: CETI10TA22 PO (23:21)
[2018-09-28] MEDS ORDERED: OMEG1CAP27 PO (23:21)
[2018-09-28] MEDS ORDERED: MULT1TAB52 PO (23:21)
[2018-09-28] MEDS ORDERED: FLUT1DIS3 IH (23:21)
[2018-09-28] MEDS ORDERED: IV NORMAL SALINE 1000ML BAG 1,000 ML IV SCH (23:54)
[2018-09-29] VITALS (12 sets, daily range): BP systolic 104–164; BP diastolic 61–84
[2018-09-29] MEDS ORDERED: ALBUTEROL SULFATE 2.5 MG/3 ML NEBU. NEB PRN
[2018-09-29] MEDS: diphenhydrAMINE 50 MG/ML VIAL IVP PRN ×2 (01:26→15:14)
[2018-09-29] MEDS: IV NORMAL SALINE 1000ML BAG 1,000 ML IV SCH (02:39)
[2018-09-29 04:37] LABS: BASO % 0 % (0-3); EOS # 0.3 x10^3/uL (0.0-0.7); EOS % 4 % (0-3); HEMATOCRIT 36.6 % (36.0-47.0); HEMOGLOBIN 12.3 g/dL (12.0-15.5); LYMPH # 1.7 x10^3/uL (1.0-4.8); LYMPH % 27 % (24-48); MEAN CORPUSCULAR HEMOGLOBIN 30 pg (25-35); MEAN CORPUSCULAR HGB CONC 34 g/dL (31-37); MEAN CORPUSCULAR VOLUME 88 fL (79-100); MONO # 0.5 x10^3/uL (0.0-1.1); MONO % 7 % (0-9); NEUT # 3.8 x10^3uL (1.8-7.7); NEUT % 61 % (31-73); PLATELET COUNT 183 x10^3/uL (140-400); RED BLOOD COUNT 4.17 x10^6/uL (3.50-5.40); RED CELL DISTRIBUTION WIDTH 12.8 % (11.5-14.5); WHITE BLOOD COUNT 6.3 x10^3/uL (4.0-11.0)
[2018-09-29 04:58] LABS: CALCIUM 8.2 mg/dL (8.5-10.1); CREATININE 0.8 mg/dL (0.6-1.0); GFR 78.7; POTASSIUM 3.8 mmol/L (3.5-5.1)
[2018-09-29] MEDS: ALBUTEROL SULFATE 2.5 MG/3 ML NEBU. NEB SCH ×4 (07:25→20:00)
[2018-09-29] MEDS: BUDESONIDE 0.5 MG/2 ML NEBU. NEB SCH ×2 (07:25→20:00)
[2018-09-29] MEDS ORDERED: IV RINGERS,LACTATED 1000ML 1,000 ML IV SCH ×2 (08:18→15:26)
--- NOTE | 2018-09-29 08:18 | PDOC2 ---
MILALILA Ricky STOCK PREPARATION OPERATOR 09/29/18 0818: CONSULT Date of Consult Date of Consult DATE: 09/29/18 TIME: 08:13 Reason for Consult Reason for Consult: possible appendicitis Referring Physician Referring Physician: ER Identification/Chief Complaint Chief Complaint abdominal pain Source Source: Chart review, Patient History of Present Illness Reason for Visit: RLQ pain started acutely yesterday. No constipation or diarrhea. No nausea or emesis. Pain is improved currently after medications. Does seem aggravated with movement Past Medical History Pulmonary: Asthma Past Surgical History Past Surgical History: Cholecystectomy, Other (LEEP) Family History Family History: Other (noncontributory to current illness ) Social History No ALCOHOL: occassional Drugs: None Lives: Alone Current Problem List Problem List Problems Medical Problems: (1) Acute appendicitis Status: Acute Current Medications Current Medications Current Medications Sodium Chloride 1,000 ml @ 1,000 mls/hr 1X ONCE IV Last administered on 09/28/18 18:35; Start 09/28/18 at 18:30; Stop 09/28/18 at 19:29; Status DC Ondansetron HCl (Zofran) 4 mg 1X ONCE IV Last administered on 09/28/18at 18:36; Start 09/28/18 at 18:30; Stop 09/28/18 at 18:31; Status DC Morphine Sulfate (Morphine Sulfate) 5 mg 1X ONCE IV Last administered on 09/28/18at 18:37; Start 09/28/18 at 18:30; Stop 09/28/18 at 18:31; Status DC Iohexol (Omnipaque 300 Mg/ml) 75 ml 1X ONCE IV Last administered on 09/28/18at 19:14; Start 09/28/18 at 19:00; Stop 09/28/18 at 19:01; Status DC Ondansetron HCl (Zofran) 4 mg PRN Q8HRS PRN IV NAUSEA/VOMITING; Start 09/28/18 at 20:00; Stop 09/29/18 at 19:59 Sodium Chloride 1,000 ml @ 150 mls/hr Q6H40M IV Last administered on 09/28/18at 20:13; Start 09/28/18 at 19:59; Stop 09/29/18 at 06:11; Status DC Morphine Sulfate (Morphine Sulfate) 2 mg PRN Q4HRS PRN IV MODERATE PAIN; Start 09/28/18 at 22:30 Morphine Sulfate (Morphine Sulfate) 4 mg PRN Q4HRS PRN IV SEVERE PAIN Last administered on 09/28/18at 23:59; Start 09/28/18 at 22:45 Diphenhydramine HCl (Benadryl) 25 mg PRN Q6HRS PRN IVP ITCHING Last administered on 09/29/18at 01:26; Start 09/29/18 at 00:00 Budesonide (Pulmicort) 0.5 mg RTBID NEB Last administered on 09/29/18at 07:25; Start 09/29/18 at 08:00 Albuterol Sulfate (Ventolin Neb Soln) 2.5 mg PRN Q6HRS PRN NEB SHORTNESS OF BREATH; Start 09/29/18 at 00:00 Sodium Chloride 1,000 ml @ 100 mls/hr Q10H IV Last administered on 09/29/18at 04:09; Start 09/28/18 at 23:54; Stop 09/29/18 at 09:53 Albuterol Sulfate (Ventolin Neb Soln) 2.5 mg RTQID NEB Last administered on 09/29/18at 07:25; Start 09/29/18 at 08:00 Active Scripts Active Reported Multivitamins (Multivitamin) 1 Each Tablet 1 Tab PO DAILY Fish Oil 1,000 Mg Softgel ([place]-3 Fatty Acids/Fish Oil) 1 Each Capsule 1 Each PO DAILY Montelukast Sodium Tablet (Montelukast Sodium) 10 Mg Tablet 1 Tab PO DAILY Advair 250-50 Diskus (Fluticasone/Salmeterol) 1 Each Disk.w.dev 1 Puff IH BID Zyrtec (Cetirizine Hcl) 10 Mg Tablet 1 Tab PO BID [slimvance (gnc)] 2 Tab BID Celebrex (Celecoxib) 200 Mg Capsule 200 Mg PO HS 30 Days Protonix (Pantoprazole Sodium) 20 Mg Tablet.dr 40 Mg PO DAILY Sprintec (Norgestimate-Ethinyl Estradiol) 1 Each Tablet 1 Tab PO DAILY Ventolin Hfa Inhaler (Albuterol Sulfate) 18 Gm Hfa.aer.ad 2 Puff INH Q4HRS Levothyroxine Sodium 25 Mcg Tablet 1 Tab PO DAILY Allergies Allergies: Coded Allergies: ibuprofen (Verified Allergy, Severe, angioedema, 08/24/18) pork derived (porcine) (Verified Allergy, Severe, severe itching, 08/24/18) Penicillins (Verified Allergy, Intermediate, Unknown, 05/05/18) Sulfa (Sulfonamide Antibiotics) (Verified Allergy, Intermediate, Unknown, 05/05/18) clarithromycin (Verified Allergy, Intermediate, Unknown, 05/05/18) fentanyl (Verified Allergy, Intermediate, 05/05/18) ROS General: No: Chills, Other (fevers) PSYCHOLOGICAL ROS: No: Anxiety, Depression Eyes: No Blurry vision, No Double vision HEENT: YES: Heacaches; No: Sore Throat Hematological and Lymphatic: No: Bleeding Problems, Blood Clots Respiratory: No: Cough, Shortness of breath Cardiovascular: No Chest Pain, No Palpitations Gastrointestinal: Yes Other (see hpi) Genitourinary: No Dysuria, No Hematuria Musculoskeletal: No Joint Pain, No Muscle Pain Neurological: No Confusion, No Impaired Coord/balance Skin: No Pruritus, No Rash Physical Exam General: Alert, Oriented X3, Cooperative, No acute distress HEENT: PERRLA, Mucous membr. moist/pink Lungs: Clear to auscultation, Normal air movement Heart: Regular rate, Normal S1, Normal S2, No murmurs Abdomen: Soft, Other (mild RLQ TTP) Extremities: No clubbing, No cyanosis Skin: No rashes, No breakdown Neuro: Normal gait, Normal speech Psych/Mental Status: Mental status NL, Mood NL MUSCULOSKELETAL: No deformity, No swelling Vitals VITALS Vital Signs Date Time Temp Pulse Resp B/P (MAP) Pulse Ox O2 Delivery O2 Flow Rate FiO2 09/29/18 07:25 94 Room Air 09/29/18 03:00 98.5 80 18 111/67 (82) 98.5 Labs Labs Laboratory Tests Test 09/28/18 18:00 09/28/18 18:04 09/28/18 18:20 09/29/18 03:30 Urine Collection Type Unknown Urine Color Yellow Urine Clarity Clear Urine pH 5.0 Urine Specific [place] 1.010 Urine Protein Negative mg/dL (NEG-TRACE) Urine Glucose (UA) Negative mg/dL (NEG) Urine Ketones (Stick) Negative mg/dL (NEG) Urine Blood Negative (NEG) Urine Nitrite Negative (NEG) Urine Bilirubin Negative (NEG) Urine Urobilinogen Dipstick 0.2 mg/dL (0.2 mg/dL) Urine Leukocyte Esterase Trace (NEG) Urine RBC 0 /HPF (0-2) Urine WBC Occ /HPF (0-4) Urine Squamous Epithelial Cells Few /LPF Urine Bacteria 0 /HPF (0-FEW) Urine Mucus Slight /LPF Urine Opiates Screen Neg (NEG) Urine Methadone Screen Neg (NEG) Urine Barbiturates Neg (NEG) Urine Phencyclidine Screen Neg (NEG) Urine Amphetamine/Methamphetamine Neg (NEG) Urine Benzodiazepines Screen Neg (NEG) Urine Cocaine Screen Neg (NEG) Urine Cannabinoids Screen Neg (NEG) Urine Ethyl Alcohol Neg (NEG) Bedside Urine HCG, Qualitative Hcg negative (Negative) White Blood Count 9.1 x10^3/uL (4.0-11.0) 6.3 x10^3/uL (4.0-11.0) Red Blood Count 4.77 x10^6/uL (3.50-5.40) 4.17 x10^6/uL (3.50-5.40) Hemoglobin 13.9 g/dL (12.0-15.5) 12.3 g/dL (12.0-15.5) Hematocrit 41.6 % (36.0-47.0) 36.6 % (36.0-47.0) Mean Corpuscular Volume 87 fL (79-100) 88 fL (79-100) Mean Corpuscular Hemoglobin 29 pg (25-35) 30 pg (25-35) Mean Corpuscular Hemoglobin Concent 33 g/dL (31-37) 34 g/dL (31-37) Red Cell Distribution Width 12.8 % (11.5-14.5) 12.8 % (11.5-14.5) Platelet Count 217 x10^3/uL (140-400) 183 x10^3/uL (140-400) Neutrophils (%) (Auto) 67 % (31-73) 61 % (31-73) Lymphocytes (%) (Auto) 23 % (24-48) 27 % (24-48) Monocytes (%) (Auto) 6 % (0-9) 7 % (0-9) Eosinophils (%) (Auto) 4 % (0-3) 4 % (0-3) Basophils (%) (Auto) 1 % (0-3) 0 % (0-3) Neutrophils # (Auto) 6.1 x10^3uL (1.8-7.7) 3.8 x10^3uL (1.8-7.7) Lymphocytes # (Auto) 2.1 x10^3/uL (1.0-4.8) 1.7 x10^3/uL (1.0-4.8) Monocytes # (Auto) 0.5 x10^3/uL (0.0-1.1) 0.5 x10^3/uL (0.0-1.1) Eosinophils # (Auto) 0.4 x10^3/uL (0.0-0.7) 0.3 x10^3/uL (0.0-0.7) Basophils # (Auto) 0.0 x10^3/uL (0.0-0.2) 0.0 x10^3/uL (0.0-0.2) Sodium Level 138 mmol/L (136-145) 144 mmol/L (136-145) Potassium Level 3.3 mmol/L (3.5-5.1) 3.8 mmol/L (3.5-5.1) Chloride Level 101 mmol/L (98-107) 108 mmol/L (98-107) Carbon Dioxide Level 27 mmol/L (21-32) 27 mmol/L (21-32) Anion Gap 10 (6-14) 9 (6-14) Blood Urea Nitrogen 19 mg/dL (7-20) 12 mg/dL (7-20) Creatinine 0.9 mg/dL (0.6-1.0) 0.8 mg/dL (0.6-1.0) Estimated GFR (Cockcroft-Gault) 68.7 78.7 BUN/Creatinine Ratio 21 (6-20) Glucose Level 89 mg/dL (70-99) 79 mg/dL (70-99) Calcium Level 9.0 mg/dL (8.5-10.1) 8.2 mg/dL (8.5-10.1) Total Bilirubin 0.2 mg/dL (0.2-1.0) Aspartate Amino Transf (AST/SGOT) 15 U/L (15-37) Alanine Aminotransferase (ALT/SGPT) 21 U/L (14-59) Alkaline Phosphatase 54 U/L (46-116) Total Protein 7.4 g/dL (6.4-8.2) Albumin 3.5 g/dL (3.4-5.0) Albumin/Globulin Ratio 0.9 (1.0-1.7) Lipase 102 U/L (73-393) Ethyl Alcohol Level < 10 mg/dL (0-10) Laboratory Tests Test 09/28/18 18:00 09/28/18 18:04 09/28/18 18:20 09/29/18 03:30 Urine Collection Type Unknown Urine Color Yellow Urine Clarity Clear Urine pH 5.0 Urine Specific [place] 1.010 Urine Protein Negative mg/dL (NEG-TRACE) Urine Glucose (UA) Negative mg/dL (NEG) Urine Ketones (Stick) Negative mg/dL (NEG) Urine Blood Negative (NEG) Urine Nitrite Negative (NEG) Urine Bilirubin Negative (NEG) Urine Urobilinogen Dipstick 0.2 mg/dL (0.2 mg/dL) Urine Leukocyte Esterase Trace (NEG) Urine RBC 0 /HPF (0-2) Urine WBC Occ /HPF (0-4) Urine Squamous Epithelial Cells Few /LPF Urine Bacteria 0 /HPF (0-FEW) Urine Mucus Slight /LPF Urine Opiates Screen Neg (NEG) Urine Methadone Screen Neg (NEG) Urine Barbiturates Neg (NEG) Urine Phencyclidine Screen Neg (NEG) Urine Amphetamine/Methamphetamine Neg (NEG) Urine Benzodiazepines Screen Neg (NEG) Urine Cocaine Screen Neg (NEG) Urine Cannabinoids Screen Neg (NEG) Urine Ethyl Alcohol Neg (NEG) Bedside Urine HCG, Qualitative Hcg negative (Negative) White Blood Count 9.1 x10^3/uL (4.0-11.0) 6.3 x10^3/uL (4.0-11.0) Red Blood Count 4.77 x10^6/uL (3.50-5.40) 4.17 x10^6/uL (3.50-5.40) Hemoglobin 13.9 g/dL (12.0-15.5) 12.3 g/dL (12.0-15.5) Hematocrit 41.6 % (36.0-47.0) 36.6 % (36.0-47.0) Mean Corpuscular Volume 87 fL (79-100) 88 fL (79-100) Mean Corpuscular Hemoglobin 29 pg (25-35) 30 pg (25-35) Mean Corpuscular Hemoglobin Concent 33 g/dL (31-37) 34 g/dL (31-37) Red Cell Distribution Width 12.8 % (11.5-14.5) 12.8 % (11.5-14.5) Platelet Count 217 x10^3/uL (140-400) 183 x10^3/uL (140-400) Neutrophils (%) (Auto) 67 % (31-73) 61 % (31-73) Lymphocytes (%) (Auto) 23 % (24-48) 27 % (24-48) Monocytes (%) (Auto) 6 % (0-9) 7 % (0-9) Eosinophils (%) (Auto) 4 % (0-3) 4 % (0-3) Basophils (%) (Auto) 1 % (0-3) 0 % (0-3) Neutrophils # (Auto) 6.1 x10^3uL (1.8-7.7) 3.8 x10^3uL (1.8-7.7) Lymphocytes # (Auto) 2.1 x10^3/uL (1.0-4.8) 1.7 x10^3/uL (1.0-4.8) Monocytes # (Auto) 0.5 x10^3/uL (0.0-1.1) 0.5 x10^3/uL (0.0-1.1) Eosinophils # (Auto) 0.4 x10^3/uL (0.0-0.7) 0.3 x10^3/uL (0.0-0.7) Basophils # (Auto) 0.0 x10^3/uL (0.0-0.2) 0.0 x10^3/uL (0.0-0.2) Sodium Level 138 mmol/L (136-145) 144 mmol/L (136-145) Potassium Level 3.3 mmol/L (3.5-5.1) 3.8 mmol/L (3.5-5.1) Chloride Level 101 mmol/L (98-107) 108 mmol/L (98-107) Carbon Dioxide Level 27 mmol/L (21-32) 27 mmol/L (21-32) Anion Gap 10 (6-14) 9 (6-14) Blood Urea Nitrogen 19 mg/dL (7-20) 12 mg/dL (7-20) Creatinine 0.9 mg/dL (0.6-1.0) 0.8 mg/dL (0.6-1.0) Estimated GFR (Cockcroft-Gault) 68.7 78.7 BUN/Creatinine Ratio 21 (6-20) Glucose Level 89 mg/dL (70-99) 79 mg/dL (70-99) Calcium Level 9.0 mg/dL (8.5-10.1) 8.2 mg/dL (8.5-10.1) Total Bilirubin 0.2 mg/dL (0.2-1.0) Aspartate Amino Transf (AST/SGOT) 15 U/L (15-37) Alanine Aminotransferase (ALT/SGPT) 21 U/L (14-59) Alkaline Phosphatase 54 U/L (46-116) Total Protein 7.4 g/dL (6.4-8.2) Albumin 3.5 g/dL (3.4-5.0) Albumin/Globulin Ratio 0.9 (1.0-1.7) Lipase 102 U/L (73-393) Ethyl Alcohol Level < 10 mg/dL (0-10) Assessment/Plan Assessment/Plan CT with possible appendicitis, right ovarian cyst RLQ pain plan for lap appy today TOM JACOBS MD 09/29/18 0920: CONSULT Assessment/Plan Assessment/Plan Patient seen and examined by me she is complaining of right lower quadrant abdominal pain is had 1 episode of emesis. Her abdomen is soft nondistended tender palpation right lower quadrant. Stress with the patient the possible pain may be from an ovarian cyst but in light of the CT findings would recommend laparoscopic appendectomy. Patient wishes to proceed with appendectomy, agree with Ailyn assessment and plan LILA ZARAGOZA APRN September 29, 2018 08:18 TOM JACOBS MD September 29, 2018 09:20
[2018-09-29] MEDS ORDERED: LIDOCAINE 1% PF 2 ML VIAL. ID PRN (08:30)
[2018-09-29] MEDS ORDERED: ONDANSETRON PF 4 MG/2 ML VIAL. IV PRN ×3 (08:30→15:30)
[2018-09-29] MEDS ORDERED: PROCHLORPERAZINE 10 MG/2 ML VIAL. IV PRN ×2 (08:30→15:30)
[2018-09-29] MEDS ORDERED: HYDROmorphone 2 MG/ML VIAL IV PRN ×2 (08:30→15:30)
[2018-09-29] MEDS ORDERED: MORPHINE SULFATE 2 MG/ML VIAL. IV PRN ×3 (08:30→15:30)
--- NOTE | 2018-09-29 11:14 | NUR ---
SW following for discharge planning. Discussed with RN, pt is from home, employed by [employer]. Pt having surgery today. RN advised no SW needs at this time. SW will continue to follow.
[2018-09-29] MEDS ORDERED: ROCURONIUM 50 MG/5 ML VIAL. ONE (11:49)
[2018-09-29] MEDS ORDERED: fentaNYL PF VIAL 100 MCG/2 ML VIAL ONE ×2 (11:49→14:31)
[2018-09-29] MEDS ORDERED: SEVOFLURANE 61 TO 120 MINUTES. IH ONE (11:50)
[2018-09-29] MEDS ORDERED: PROPOFOL 20 ML IV ONE (11:50)
[2018-09-29] MEDS ORDERED: LIDOCAINE 2% PF 5 ML VIAL. ONE (11:50)
[2018-09-29] MEDS ORDERED: KETOROLAC 30 MG/ML INJ FOR OR. INJ ONE (11:50)
[2018-09-29] MEDS ORDERED: ONDANSETRON PF 4 MG/2 ML VIAL. ONE (11:50)
[2018-09-29] MEDS ORDERED: DEXAMETHASONE SOD PHOS 4 MG/ML VIAL ONE (11:50)
--- NOTE | 2018-09-29 12:00 | NUR ---
Patient was taken down to surgery around [address] Palacios was informed per to surgery that the patients pain is not resolved by morphine and she states it is causing her to have a terrible migraine so she does not want to take it. Will follow up.
[2018-09-29] MEDS ORDERED: BUPIVACAINE-EPI 0.25%-1:200000 MPF 30 ML VIAL. ONE (12:07)
[2018-09-29] MEDS ORDERED: fentaNYL PF VIAL 100 MCG/2 ML VIAL IV ONE (12:45)
[2018-09-29] MEDS ORDERED: diphenhydrAMINE 50 MG/ML VIAL IVP ONE (12:45)
--- NOTE | 2018-09-29 13:01 | HP ---
ADMIT DATE: 09/28/2018 CHIEF COMPLAINT: Abdominal pain. HISTORY OF PRESENT ILLNESS AND HOSPITAL COURSE: This patient has a 12-hour history of increasing abdominal pain, now localized to the right lower quadrant, came to the Emergency Room for further evaluation, was found to have a negative evidence of fever or elevated white count with positive tenderness in right lower quadrant and CAT scan confirmed inflammation about the pancreas without abscess formation. She also had a 1.5 cm right ovarian cyst with mild left hydrosalpinx. Due to severity of symptoms and high risk for appendicitis, the patient was admitted for surgical consultation. PAST MEDICAL HISTORY: Significant for: 1. Asthma. 2. Mild hypothyroidism 3. Anxiety and depression. 4. Reflux disease. PAST SURGICAL HISTORY: Significant for cholecystectomy in 2015, scope of left knee and cervical cone, and wisdom teeth removal. FAMILY HISTORY: Significant for mother who has heart disease and hypertension. One brother who has celiac disease. Maternal grandfather with pulmonary embolus after knee surgery. Paternal grandfather with stomach cancer. Daughter with sphincter of oddi and gallbladder issues. SOCIAL HISTORY: The patient does not smoke. She only drinks occasionally. She lives with her fiance and 3 youngest children. She is a registered nurse. ALLERGIES: Include PENICILLIN, WHICH CAUSE RASH. SULFA, WHICH CAUSE ITCHING. BIAXIN, WHICH CAUSES RASH. IBUPROFEN, WHICH CAUSES RASH AND HIVES. REVIEW OF SYSTEMS: The patient was in her usual state of health until abdominal pain. Denies any nausea, vomiting, diarrhea, constipation, cough, congestion or fever, recent weight loss or weight gain. GYNECOLOGIC HISTORY: G4, P4, vaginal deliveries, on oral control with negative test on admission. PHYSICAL EXAMINATION: GENERAL: This is a well-nourished, well-developed female in moderate distress with migraine headache at present. HEENT: Benign. NECK: Supple. CARDIAC: Regular rate and rhythm. LUNGS: Clear. ABDOMEN: Soft, nontender to light palpation, tender to deep palpation in right lower quadrant without rebound or guarding. EXTREMITIES: With 2+ pulses, no edema. NEUROLOGIC: Showed no unilateral findings. ASSESSMENT: 1. Acute right lower quadrant abdominal pain with possible appendicitis. 2. Hydrosalpinx, and ovarian cyst, consider pelvic inflammatory disease. PLAN: To proceed with surgical consultation and possible appendectomy. Consider followup urine culture or pelvic exam to rule out PID. LEONARDO DOWLING MD DR: Danny JOB#: [id number] / [id number]
[2018-09-29] MEDS ORDERED: NEOSTIGMINE METHYLSULFATE 5 MG/5 ML SYRINGE. ONE (13:52)
[2018-09-29] MEDS ORDERED: ESMOLOL 100 MG/10 ML VIAL. IVP ONE (13:52)
[2018-09-29] MEDS ORDERED: GLYCOPYRROLATE 1 MG/5 ML VIAL. ONE (13:52)
[2018-09-29] MEDS: IV DEXTROSE 5%-LACT RINGERS 1,000 ML IV SCH (14:05)
--- NOTE | 2018-09-29 14:05 | PDOC4 ---
Operative Note Operative Note Date: 09/29/2018 Preoperative diagnosis: Acute appendicitis, right ovarian cyst Postoperative diagnosis: Same Procedure: Laparoscopic appendectomy and aspiration of right ovarian cyst Surgeon: Ronny Specimen: Appendix Dictation: Patient is a 43-year-old female is better to the hospital with right lower quadrant abdominal pain and a CT scan showing signs consistent with acute appendicitis and also a 1.5cm ovarian cyst on the right side. Procedure of laparoscopic appendectomy was explained to the patient detail risk benefits were also discussed including bleeding infection injury to intra-abdominal contents possibly necessitating further or open operations alternatives to this procedure also discussed with the patient who seemed to understand and gave both verbal and written consent to have the procedure performed. Patient was taken to the operating room placed in supine position general anesthesia was initiated once patient was sleep and intubated her abdomen was prepped and draped usual sterile fashion using ChloraPrep and area just below the umbilicus was injected with quarter percent Marcaine with epinephrine incision was made Lembert scalpel Veress needle was placed within the abdomen creating pneumoperitoneum once this was complete 12 mm port was placed and a Zipwhip camera was placed within the abdomen and inspected was noted that the appendix the right lower quadrant with a low bit of free fluid and there was a right ovarian cyst. A 5 OmegaPort was then placed low in the midline and a second 5 mm port was placed in the right mid abdomen all under direct visualization. The appendix was grasped and retracted towards the anterior abdominal wall a window was propagated the mesial appendix with [place] dissector and a Endo DANIELLE stapler was used to staple and transect the base the appendix a second load was used to staple and transect the mesoappendix the appendix was then placed in Endo Catch bag and removed from the umbilicus. The right ovarian cyst was aspirated with a long needle and the right lower quadrant was irrigated and suctioned dry, stasis was deemed to be appropri ate and the pneumoperitoneum was reduced all ports removed the fascial defect at the umbilicus closed [id number] Vicryl suture and the skin was reapproximate all port sites with for 4-0 subcuticular Monocryl Mastisol Steri- Strips and Band-Aids were applied as dressings. Was awakened and excavated in the operating room taken to recovery in stable condition all sponge instrument needle counts listed as correct estimate blood loss 5 mL TOM JACOBS MD September 29, 2018 14:05
[2018-09-29] MEDS ORDERED: oxyCODONE/APAP 5/325 1 TAB TABLET PO PRN (14:15)
[2018-09-29] MEDS ORDERED: 0.9 % SODIUM CHLORIDE 10 ML DISP.SYRIN. IV PRN (14:15)
[2018-09-29] MEDS: fentaNYL PF VIAL 100 MCG/2 ML VIAL IV PRN ×2 (14:30→14:58)
[2018-09-29] MEDS ORDERED: IPRATRPIUM/ALBUTEROL 0.5/2.5MG 3 ML NEBU. ONE (14:35)
[2018-09-29] MEDS ORDERED: IPRATRPIUM/ALBUTEROL 0.5/2.5MG 3 ML NEBU. NEB ONE (14:45)
[2018-09-29] MEDS: KETOROLAC 15 MG/ML VIAL. IV SCH (18:28)
[2018-09-29] MEDS: oxyCODONE/APAP 5/325 1 TAB TABLET PO PRN ×2 (18:32→22:38)
[2018-09-30] MEDS: diphenhydrAMINE 50 MG/ML VIAL IVP PRN ×2 (00:04→06:31)
[2018-09-30] MEDS: KETOROLAC 15 MG/ML VIAL. IV SCH ×3 (00:05→11:13)
[2018-09-30 02:47] VITALS: BP 107/65
[2018-09-30] MEDS: IV DEXTROSE 5%-LACT RINGERS 1,000 ML IV SCH ×2 (03:03→09:40)
[2018-09-30] MEDS: oxyCODONE/APAP 5/325 1 TAB TABLET PO PRN ×2 (03:05→08:12)
[2018-09-30 04:23] LABS: BASO % 0 % (0-3); EOS % 1 % (0-3); HEMATOCRIT 33.8 % (36.0-47.0); HEMOGLOBIN 11.3 g/dL (12.0-15.5); LYMPH # 1.5 x10^3/uL (1.0-4.8); LYMPH % 29 % (24-48); MEAN CORPUSCULAR HEMOGLOBIN 30 pg (25-35); MEAN CORPUSCULAR HGB CONC 34 g/dL (31-37); MEAN CORPUSCULAR VOLUME 88 fL (79-100); MONO # 0.4 x10^3/uL (0.0-1.1); MONO % 8 % (0-9); NEUT # 3.2 x10^3uL (1.8-7.7); NEUT % 62 % (31-73); PLATELET COUNT 168 x10^3/uL (140-400); RED BLOOD COUNT 3.84 x10^6/uL (3.50-5.40); WHITE BLOOD COUNT 5.2 x10^3/uL (4.0-11.0)
[2018-09-30 07:00] VITALS: BP 117/72
[2018-09-30] MEDS: ALBUTEROL SULFATE 2.5 MG/3 ML NEBU. NEB SCH (07:21)
[2018-09-30] MEDS: BUDESONIDE 0.5 MG/2 ML NEBU. NEB SCH (07:21)
--- NOTE | 2018-09-30 07:26 | NUR ---
Pulmicort and Ventolin non-administered as pt had take her own inhaler CHolmes CONTENT EDITOR
--- NOTE | 2018-09-30 08:44 | PDOC ---
LILA ZARAGOZA CYTOPATHOLOGIST 09/30/18 0844: SURGICAL PROGRESS NOTE Subjective tolerating clears pain managed urinating Vital Signs Vital Signs Date Time Temp Pulse Resp B/P (MAP) Pulse Ox O2 Delivery O2 Flow Rate FiO2 09/30/18 08:12 100 Room Air 09/30/18 07:00 98.5 81 18 117/72 (87) 98.5 09/29/18 15:00 2 I&O Intake and Output 09/30/18 07:00 Intake Total 1530 ml Output Total 15 ml Balance 1515 ml Intake Oral 480 ml IV Total 1050 ml Output Estimated Blood Loss 15 ml # Voids 4 General: Alert, Oriented X3, Cooperative, No acute distress Abdomen: Soft, Other (lap dressings dry) Labs Laboratory Tests Test 09/28/18 18:00 09/28/18 18:04 09/28/18 18:20 09/29/18 03:30 Urine Collection Type Unknown Urine Color Yellow Urine Clarity Clear Urine pH 5.0 Urine Specific [place] 1.010 Urine Protein Negative mg/dL (NEG-TRACE) Urine Glucose (UA) Negative mg/dL (NEG) Urine Ketones (Stick) Negative mg/dL (NEG) Urine Blood Negative (NEG) Urine Nitrite Negative (NEG) Urine Bilirubin Negative (NEG) Urine Urobilinogen Dipstick 0.2 mg/dL (0.2 mg/dL) Urine Leukocyte Esterase Trace (NEG) Urine RBC 0 /HPF (0-2) Urine WBC Occ /HPF (0-4) Urine Squamous Epithelial Cells Few /LPF Urine Bacteria 0 /HPF (0-FEW) Urine Mucus Slight /LPF Urine Opiates Screen Neg (NEG) Urine Methadone Screen Neg (NEG) Urine Barbiturates Neg (NEG) Urine Phencyclidine Screen Neg (NEG) Urine Amphetamine/Methamphetamine Neg (NEG) Urine Benzodiazepines Screen Neg (NEG) Urine Cocaine Screen Neg (NEG) Urine Cannabinoids Screen Neg (NEG) Urine Ethyl Alcohol Neg (NEG) Bedside Urine HCG, Qualitative Hcg negative (Negative) White Blood Count 9.1 x10^3/uL (4.0-11.0) 6.3 x10^3/uL (4.0-11.0) Red Blood Count 4.77 x10^6/uL (3.50-5.40) 4.17 x10^6/uL (3.50-5.40) Hemoglobin 13.9 g/dL (12.0-15.5) 12.3 g/dL (12.0-15.5) Hematocrit 41.6 % (36.0-47.0) 36.6 % (36.0-47.0) Mean Corpuscular Volume 87 fL (79-100) 88 fL (79-100) Mean Corpuscular Hemoglobin 29 pg (25-35) 30 pg (25-35) Mean Corpuscular Hemoglobin Concent 33 g/dL (31-37) 34 g/dL (31-37) Red Cell Distribution Width 12.8 % (11.5-14.5) 12.8 % (11.5-14.5) Platelet Count 217 x10^3/uL (140-400) 183 x10^3/uL (140-400) Neutrophils (%) (Auto) 67 % (31-73) 61 % (31-73) Lymphocytes (%) (Auto) 23 % (24-48) 27 % (24-48) Monocytes (%) (Auto) 6 % (0-9) 7 % (0-9) Eosinophils (%) (Auto) 4 % (0-3) 4 % (0-3) Basophils (%) (Auto) 1 % (0-3) 0 % (0-3) Neutrophils # (Auto) 6.1 x10^3uL (1.8-7.7) 3.8 x10^3uL (1.8-7.7) Lymphocytes # (Auto) 2.1 x10^3/uL (1.0-4.8) 1.7 x10^3/uL (1.0-4.8) Monocytes # (Auto) 0.5 x10^3/uL (0.0-1.1) 0.5 x10^3/uL (0.0-1.1) Eosinophils # (Auto) 0.4 x10^3/uL (0.0-0.7) 0.3 x10^3/uL (0.0-0.7) Basophils # (Auto) 0.0 x10^3/uL (0.0-0.2) 0.0 x10^3/uL (0.0-0.2) Sodium Level 138 mmol/L (136-145) 144 mmol/L (136-145) Potassium Level 3.3 mmol/L (3.5-5.1) 3.8 mmol/L (3.5-5.1) Chloride Level 101 mmol/L (98-107) 108 mmol/L (98-107) Carbon Dioxide Level 27 mmol/L (21-32) 27 mmol/L (21-32) Anion Gap 10 (6-14) 9 (6-14) Blood Urea Nitrogen 19 mg/dL (7-20) 12 mg/dL (7-20) Creatinine 0.9 mg/dL (0.6-1.0) 0.8 mg/dL (0.6-1.0) Estimated GFR (Cockcroft-Gault) 68.7 78.7 BUN/Creatinine Ratio 21 (6-20) Glucose Level 89 mg/dL (70-99) 79 mg/dL (70-99) Calcium Level 9.0 mg/dL (8.5-10.1) 8.2 mg/dL (8.5-10.1) Total Bilirubin 0.2 mg/dL (0.2-1.0) Aspartate Amino Transf (AST/SGOT) 15 U/L (15-37) Alanine Aminotransferase (ALT/SGPT) 21 U/L (14-59) Alkaline Phosphatase 54 U/L (46-116) Total Protein 7.4 g/dL (6.4-8.2) Albumin 3.5 g/dL (3.4-5.0) Albumin/Globulin Ratio 0.9 (1.0-1.7) Lipase 102 U/L (73-393) Ethyl Alcohol Level < 10 mg/dL (0-10) Test 09/30/18 03:30 White Blood Count 5.2 x10^3/uL (4.0-11.0) Red Blood Count 3.84 x10^6/uL (3.50-5.40) Hemoglobin 11.3 g/dL (12.0-15.5) Hematocrit 33.8 % (36.0-47.0) Mean Corpuscular Volume 88 fL (79-100) Mean Corpuscular Hemoglobin 30 pg (25-35) Mean Corpuscular Hemoglobin Concent 34 g/dL (31-37) Red Cell Distribution Width 13.0 % (11.5-14.5) Platelet Count 168 x10^3/uL (140-400) Neutrophils (%) (Auto) 62 % (31-73) Lymphocytes (%) (Auto) 29 % (24-48) Monocytes (%) (Auto) 8 % (0-9) Eosinophils (%) (Auto) 1 % (0-3) Basophils (%) (Auto) 0 % (0-3) Neutrophils # (Auto) 3.2 x10^3uL (1.8-7.7) Lymphocytes # (Auto) 1.5 x10^3/uL (1.0-4.8) Monocytes # (Auto) 0.4 x10^3/uL (0.0-1.1) Eosinophils # (Auto) 0.0 x10^3/uL (0.0-0.7) Basophils # (Auto) 0.0 x10^3/uL (0.0-0.2) Laboratory Tests Test 09/30/18 03:30 White Blood Count 5.2 x10^3/uL (4.0-11.0) Red Blood Count 3.84 x10^6/uL (3.50-5.40) Hemoglobin 11.3 g/dL (12.0-15.5) Hematocrit 33.8 % (36.0-47.0) Mean Corpuscular Volume 88 fL (79-100) Mean Corpuscular Hemoglobin 30 pg (25-35) Mean Corpuscular Hemoglobin Concent 34 g/dL (31-37) Red Cell Distribution Width 13.0 % (11.5-14.5) Platelet Count 168 x10^3/uL (140-400) Neutrophils (%) (Auto) 62 % (31-73) Lymphocytes (%) (Auto) 29 % (24-48) Monocytes (%) (Auto) 8 % (0-9) Eosinophils (%) (Auto) 1 % (0-3) Basophils (%) (Auto) 0 % (0-3) Neutrophils # (Auto) 3.2 x10^3uL (1.8-7.7) Lymphocytes # (Auto) 1.5 x10^3/uL (1.0-4.8) Monocytes # (Auto) 0.4 x10^3/uL (0.0-1.1) Eosinophils # (Auto) 0.0 x10^3/uL (0.0-0.7) Basophils # (Auto) 0.0 x10^3/uL (0.0-0.2) Problem List Problems Medical Problems: (1) Acute appendicitis Status: Acute Assessment/Plan s/p appy, drainage ovarian cyst ok to dc home if tolerates lunch FU 2 weeks script on chart TOM JACOBS MD 09/30/18 0957: SURGICAL PROGRESS NOTE Assessment/Plan Agree with Ailyn assessment and plan LILA ZARAGOZA APRN September 30, 2018 08:44 TOM JACOBS MD September 30, 2018 09:57
[2018-09-30 11:00] VITALS: BP 121/69
[2018-09-30] MEDS ORDERED: OXYC1TAB19 PO (12:07)
--- NOTE | 2018-09-30 12:22 | NUR ---
SW following for discharge planning. Discussed with RN, pt had surgery yesterday, can discharge home today with self care if tolerates lunch. No SW needs.
--- NOTE | 2018-09-30 12:30 | NUR ---
Discharge Note: [place] [address] Discharge instructions and discharge home medications reviewed with Patient and a copy given. All questions have been answered and understanding verbalized. The following instructions and handouts were given: informationa bout laprascopic appendectomy and appendicitis, follow up appointments. Discontinued lines and drains: IV lines in right hand and left AC removed, catheter tip intacts. Patient discharged to home with self care with , wheelchair used for mobility to discharge vehicle.
--- NOTE | 2018-09-30 18:31 | DS ---
DATE OF DISCHARGE: 09/30/2018 ADMITTING DIAGNOSIS: Acute appendicitis. DISMISSAL DIAGNOSIS: Acute appendicitis. SECONDARY DIAGNOSES: 1. Migraine headaches. 2. Mild asthma. 3. Underlying hypothyroidism. 4. Reflux disease. 5. Depression, anxiety. HISTORY OF PRESENT ILLNESS AND HOSPITAL COURSE: This patient is a 43-year-old female who came in with acute onset of abdominal pain, had negative laboratory findings, but positive CAT scan with evidence of acute appendicitis. The patient also had a small ovarian cyst on the right side. She was observed initially and began having migraine type headaches. Symptoms not improved and she was taken to surgery for laparoscopic cholecystectomy. This was accomplished with pathology report pending at the time of dictation. Ovarian cyst was also drained with needle drainage intraoperatively. The patient's postoperative course was uncomplicated. She began tolerating diet well and pain was controlled with p.o. pain medications. Therefore, she was discharged to home on her previous home medications of albuterol inhaler 2 puffs q. 6 hours p.r.n., Celebrex 200 mg at bedtime, Zyrtec 10 mg q. day, Advair 250/50 one puff b.i.d., levothyroxine 25 mcg daily, Singulair 10 mg daily, multivitamin daily, control pills daily, omega-3 fatty acids daily, pantoprazole 40 mg daily, diet supplement 2 pills twice a day. She was given Percocet 7.25, 1-2 q. 6 hours p.r.n. #45. She will follow up with Dr. Foss in one week and Dr. Jefferson in 1-2 weeks. LEONARDO DOWLING MD DR: JIAN/florence JOB#: [id number] / [id number]
--- NOTE | 2018-10-01 20:05 | PATHOLOGY ---
[facility] Accession Number: [id number] . 01 Material submitted: . appendix - APPENDIX . 01 Clinical history: . Acute appendicitis. . 02 Diagnosis: Appendix, appendectomy: - Acute appendicitis. (SK/db; 09/30/2018) LBQ/09/30/2018 . 02 Electronically signed: . Ant Flores MD, Pathologist NPI- [id number] . 01 Gross description: . Received in formalin labeled "August, appendix" is an intact vermiform appendix measuring 7.5 cm in length and 0.9 cm in diameter. There is an attached portion of yellow-ortiz mesoappendix measuring 6.6 x 2.0 x 1.7 cm. The proximal margin is closed with a staple line. The serosa is pink-ortiz with dilated blood vessels. The specimen is serially sectioned to reveal no perforations or fecaliths, and an average luminal diameter of 0.2 cm. [employer] sections of the specimen is submitted in cassette A1, with the proximal margin inked black. ([facility]; 09/29/2018) SYC/SYC . 02 Pathologist provided ICD-10: K35.80 . 02 CPT . 306161 Specimen Comment: A courtesy copy of this report has been sent to Specimen Comment: [phone], , . Specimen Comment: Report sent to ,DR BERUMEN / DR HERNÁNDEZ Performed at: 01 [facility] [address], [place], [place] [id number] MD Elian Hcikman MD Phone: [phone] Performed at: [address] [id number] MD Clayton Dunaway MD Phone: [phone]
== END 2018-09-30 12:30 | disposition home or self-care (01) | DRG 742 ==
LOC: ER 17:32 → 4 NORTH 19:17
PROVIDERS: ADMIT Family Medicine; ATTEND Family Medicine
PROC: 0U904ZZ Drainage of Right Ovary, Percutaneous Endoscopic Approach (ICD-10-PCS; 2018-09-29)
PROC: 0DTJ4ZZ Resection of Appendix, Percutaneous Endoscopic Approach (ICD-10-PCS; principal; 2018-09-29 14:00)
DX: N83.201 Unspecified ovarian cyst, right side (principal); K35.80 Unspecified acute appendicitis; E03.9 Hypothyroidism, unspecified; F32.9 Major depressive disorder, single episode, unspecified; F41.9 Anxiety disorder, unspecified; G43.909 Migraine, unspecified, not intractable, without status migrainosus; J45.909 Unspecified asthma, uncomplicated; K21.9 Gastro-esophageal reflux disease without esophagitis; N70.11 Chronic salpingitis; Z80.0 Family history of malignant neoplasm of digestive organs; Z82.49 Family history of ischemic heart disease and other diseases of the circulatory system; Z83.79 Family history of other diseases of the digestive system; Z88.1 Allergy status to other antibiotic agents; Z88.0 Allergy status to penicillin; Z88.2 Allergy status to sulfonamides; Z88.8 Allergy status to other drugs, medicaments and biological substances
CPT/HCPCS: 36415; 74177; 80048; 80053; 80307; 81001; 81025; 83690; 85025; 87086; 88304; 94640; 94760; 96361; 96374; A7015; G0480; J0696; J1100; J1200; J1885; J2001; J2270; J2405; J2704; J2710; J3010; J3490; J7030; J7120; J7613; J7620; J7626; Q9967; 99285-25

== ENCOUNTER → 2018-12-22 | Outpatient (CLI) | payer OTHER ==
[~2018-12-22] MED LIST changes: +FLUT1DIS3 IH; +MONT10TA49 PO; -MONT10TA9 PO; +MULT1TAB52 PO; +OMEG1CAP27 PO; +OXYC1TAB19 PO
== END | disposition home or self-care (01) ==
LOC: LAB 10:04
PROVIDERS: ATTEND Family Medicine
DX: E03.9 Hypothyroidism, unspecified (principal); N89.8 Other specified noninflammatory disorders of vagina
CPT/HCPCS: 36415; 84436; 84443; 87491; 87591